=== PATIENT | male | born 1980 | race Caucasian/White ===

== ENCOUNTER 2016-11-03 10:52 | Inpatient (IN) | payer MEDICARE, OTHER ==
--- NOTE | ~2016-11-03 | CN ---
Consultation Report [facility] [address] [place]. [address] NAME: CAROLEE KESSLER : 82 STATUS : ADM Humphrey PAT#: [id number] AGE: 36 ADM/REG DATE : 11/03/16 MR#: [id number] REPORT SERV DATE: 11/04/16 DICTATED BY: JAMES MAZARIEGOS DATE: 11/04/16 REPORT STATUS : Draft TRANSCRIBED BY: MODL DATE: 11/04/16 DATE OF CONSULTATION: 11/04/2016 PRIMARY OCULAR CARE AIDE: Clarence Taylor M.D. CHIEF COMPLAINT: Chest pain, nausea, vomiting, and diarrhea. REASON FOR CONSULTATION: Pulmonary hypertension. SOURCE: The patient and his chart. HISTORY OF PRESENT ILLNESS: Mr. Kessler is a very pleasant 36-year-old white man with history of paroxysmal atrial fibrillation and pacemaker placement, as well as end-stage renal disease for the past six years, on hemodialysis on a Wednesday, , Wednesday schedule. He was in his usual state of health until recently when he had chest pain, nausea, vomiting, and diarrhea, but no GI blood loss. He has not had any abdominal pain. He has had shortness of breath and cough, but no wheezing, no fever or chills. He has occasional palpitations. He does snore at night. He has daytime somnolence. He wears a size 2 XL shirt. He is on home oxygen, but is not on CPAP or BiPAP. He was admitted on 11/03/2016 and was found to be 20 kilos overweight and is undergoing more intensive hemodialysis. REVIEW OF SYSTEMS: All other systems are negative. ALLERGIES: ALMOND OIL. MEDICATIONS AT HOME: Included amiodarone 200 b.i.d., aspirin, atorvastatin, B complex, calcium, cyanocobalamin, Dexilant, doxazosin, folic acid, gabapentin, hydralazine, hydrocodone, hydrocortisone, metoprolol, warfarin, and zolpidem. CARDIAC RISK FACTORS: Include hypertension and cholesterol. Denies diabetes, tobacco, or family history. PAST MEDICAL HISTORY: Significant for end-stage renal disease, on hemodialysis for the past six years on a Wednesday, , Wednesday schedule, reportedly he is 20 kg overweight at this time, atrial fibrillation, sick sinus syndrome status post pacemaker placement one year ago at [facility] by Dr. Luevano, [employer] device, January 22, 2016. He had cardiac catheterization by Dr. Akira Bertrand in May of 2016, which revealed nonobstructive coronary disease, LVEDP of 20. No significant gradient across the aortic valve, sleep apnea, on oxygen at home, but not on CPAP or BiPAP status post tonsillectomy status post herniorrhaphy, and obesity. SOCIAL HISTORY: The patient lives in [place], [place]. He is . He has no children. He is disabled. Consultation Report [facility] [address] [place]. [address] NAME: CAROLEE KESSLER : 82 STATUS : ADM Humphrey PAT#: [id number] AGE: 36 ADM/REG DATE : 11/03/16 MR#: [id number] REPORT SERV DATE: 11/04/16 DICTATED BY: JAMES MAZARIEGOS DATE: 11/04/16 REPORT STATUS : Draft TRANSCRIBED BY: MODCal DATE: 11/04/16 FAMILY HISTORY: Negative for coronary artery disease at young age. PHYSICAL EXAMINATION: GENERAL: He is a well-developed, well-nourished, middle-aged white man, appearing older than his stated age, somnolent in bed, on dialysis, difficult to maintain arousal. VITAL SIGNS: The blood pressure is 187/78, pulse 69, temperature 98 degrees Fahrenheit. HEENT: Conjunctivae injected. Sclerae anicteric. Lips without cyanosis. NECK: Carotids 2+ and symmetrical. No bruits. No JVD. No thyromegaly. Thick neck. LUNGS: Clear anteriorly. No use of accessory muscles. HEART: Regular rate and rhythm with harsh 3/6 systolic murmur along the sternal border varying with respiration. ABDOMEN: Positive bowel sounds. Soft, nontender, obese. EXTREMITIES: Pulses 2+ and symmetrical. No cyanosis, clubbing, or edema. There is an access site in the left forearm. BACK: No CVA tenderness. MUSCULOSKELETAL: Good tone. NEURO: Alert and oriented x3 when he is aroused, frequent somnolence. DIAGNOSTIC DATA: EKG reveals dual-chamber electronic pacemaker. The echocardiogram, mildly depressed LV systolic function, LVEF 45%, moderate LVH, moderately enlarged right ventricle with moderately decreased systolic function, ICD lead noted in the RV, severe pulmonary hypertension with PA pressure of 93 mmHg, systolic and diastolic septal flattening consistent with RV pressure and volume overload, severe TR with probable hepatic vein flow reversal. Posterior tricuspid leaflet may be partially tethered by the ICD lead. Of note, there was only mild mitral regurgitation and mitral valve leaflets were thickened with adequate mobility. LABORATORY EXAMINATION: Includes a sodium 141, potassium 5.9, chloride 104, CO2 not done. BUN 56, creatinine 10.3, glucose 102. White count 7.7, hemoglobin 7.9, and hematocrit 25.3. INR 1.9. CPK 29. MB 2.1. Troponin I of 0.11. Peak troponin was 0.14. TSH was 6.53. IMPRESSION: 1. Suspect sleep apnea, may be severe. 2. Severe pulmonary hypertension, probably secondary to lung disease. 3. Severe tricuspid regurgitation, probably secondary to severe pulmonary hypertension and pacer lead. 4. Atrial fibrillation and sick sinus syndrome status post pacemaker placement. 5. Mildly depressed left ventricular systolic function by most recent echo. 6. No significant coronary artery disease at cardiac catheterization in May 2016. 7. Obesity. 8. Systemic arterial hypertension. 9. End-stage renal disease, on hemodialysis for the past six years on a Wednesday, , Wednesday schedule. 10.Anticoagulated with Coumadin. Consultation Report [address] [address] NAME: CAROLEE KESSLER : 82 STATUS : ADM Humphrey PAT#: [id number] AGE: 36 ADM/REG DATE : 11/03/16 MR#: [id number] REPORT SERV DATE: 11/04/16 DICTATED BY: JAMES MAZARIEGOS DATE: 11/04/16 REPORT STATUS : Draft TRANSCRIBED BY: MARK DATE: 11/04/16 RECOMMENDATIONS: 1. Consult Pulmonary Medicine. 2. Check room air blood gas. 3. Consider evaluation for chronic pulmonary thromboembolism with V/Q scan or CT angiogram. 4. Decrease amiodarone to 200 mg p.o. daily. 5. Consider calcium-channel blockers such as amlodipine or Procardia. 6. Consider CPAP or BiPAP. 7. Consider Revatio or bosentan. 8. Consider referral to [facility]. 9. Could do elective right heart catheterization for invasive measurement of pulmonary pressures as an outpatient when he is off Coumadin. 10.Intensify hemodialysis as you are doing. 11.Discontinue troponin measurement. BN/MODL James Mazariegos M.D. / [id number] CC: Dedrick Shaffer MD
--- NOTE | ~2016-11-03 | CN ---
Consultation Report [facility] [address] [place]. [address] NAME: CAROLEE KESSLER : 82 STATUS : ADM Humphrey PAT#: [id number] AGE: 36 ADM/REG DATE : 11/03/16 MR#: [id number] REPORT SERV DATE: 11/05/16 DICTATED BY: PANFILO US DATE: 11/05/16 REPORT STATUS : Draft TRANSCRIBED BY: MODL DATE: 11/05/16 CONSULTATION DATE OF CONSULTATION: 11/05/2016 CHIEF COMPLAINT: Pulmonary hypertension in a patient with recent abnormal echocardiogram. HISTORY OF PRESENT ILLNESS: Mr. Carolee Kessler is a 36-year-old male with a past medical history significant for end-stage renal disease, dysrhythmia, status post pacemaker placement, chronic Coumadin, and chronic hypoxemia, who presents to [facility] with complaints of chest pain, nausea, and vomiting. It should be noted that, Mr. Kessler has not been hospitalized recently and is usually in fairly good health given his significant comorbidities. Mr. Kessler is followed by Dr. Patrick Garcia at our outpatient clinic. He was recently seen in August for abnormal pulmonary function testing. He is on chronic supplemental oxygen at 2 L. He is not currently on any pulmonary medications. The patient describes himself as a never smoker. The patient does confirm a previous history of obstructive sleep apnea. He states that, he did undergo a formal outpatient polysomnography; however, he did not ever received CPAP therapy. He does confirm snoring at night, frequent nighttime awakenings as well as daytime somnolence. He describes his exercise tolerance as being quite limited, only being able to walk approximately 20 feet before experiencing some degree of shortness of breath. Again, the patient began to experience worsening chest pain as well as nausea and vomiting and eventually presented to [facility]. He has been seen by the Nephrology Service for volume overload and diuresis as he has approximately 20 kg positive. He has been seen by the Cardiology service, who recently performed an echocardiogram, which demonstrated mildly decreased left ventricular systolic fraction with an estimated ejection fraction of 45%. There was moderate left ventricular hypertrophy. The right ventricle was noted to be moderately enlarged. Estimated pulmonary artery systolic pressure was 93 mmHg. Signs consistent with septal flattening, consistent with RV pressure and volume overload. Tricuspid regurg was appreciated as well. The patient was taken to dialysis with aggressive diuresis. The patient did have an arterial blood gas obtained on room air, which demonstrated a pH of 7.29, PaCO2 of 63, PaO2 of 41, and a bicarb of 29.2. For the aforementioned reasons, the patient has been referred to the Pulmonary Service for further assessment. Currently, Mr. Kessler is on 1 L supplemental oxygen with appropriate oxygenation sats. He denies any productive cough. He denies any wheezing in his chest. He has had no recent episodes of hemoptysis. He denies any recurrent upper respiratory infections or pneumonia. He denies any lethargy or somnolence today. The patient currently denies any radiating chest pain. He denies any murmurs, angina, or Consultation Report [address] [address] NAME: CAROLEE KESSLER : 82 STATUS : ADM Humphrey PAT#: [id number] AGE: 36 ADM/REG DATE : 11/03/16 MR#: [id number] REPORT SERV DATE: 11/05/16 DICTATED BY: PANFILO US DATE: 11/05/16 REPORT STATUS : Draft TRANSCRIBED BY: MARK DATE: 11/05/16 palpitations. In regard to constitutional symptoms, he has had some nausea and vomiting today. He currently denies any fever, chills, abdominal pain, or edema. PAST MEDICAL HISTORY: 1. Dysrhythmia, status post pacemaker placement, currently on Coumadin. 2. End-stage renal disease. 3. Hypertension. 4. Dyslipidemia. 5. Chronic hypoxemic respiratory failure. PAST SURGICAL HISTORY: 1. Tonsillectomy. 2. Hernia repair. FAMILY HISTORY: The patient denies family history of lung disease. SOCIAL HISTORY: The patient is . He has no biological children. 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 He denies any new or exotic pets in his home. TOBACCO/ALCOHOL: The patient describes himself as a never smoker. MEDICATIONS: Amiodarone 200 mg, aspirin 81 mg, atorvastatin 40 mg, Dexilant 60 mg, Cardura 2 mg, gabapentin 300 mg, hydralazine 50 mg, hydrocodone 10/325, metoprolol 25 mg, warfarin 5 mg, zolpidem 5 mg. ALLERGIES: THE PATIENT HAS KNOWN ALLERGY TO ALMOND OIL. REVIEW OF SYSTEMS: Complete review of systems was performed with pertinent positives and negatives contained within the body of the HPI. PHYSICAL EXAMINATION: VITAL SIGNS: Blood pressure is 137/71, heart rate is 72, T-max is 97.8, respiratory rate is 12, SpO2 is 94% on 2 L. GENERAL: The patient is a pleasant, well-nourished/well-developed male, who is not currently exhibiting any signs of acute distress. Skin: Skin with appropriate texture and turgor. No rashes, lesions, or ulcers. Nails are clear without cyanosis or clubbing. HEENT: Head: Skull is normocephalic/atraumatic. Facies symmetric. No masses or lesions. Eyes: Sclera anicteric, conjunctiva pink without exudates. Extra ocular movements intact. Pupils are equal, round, reactive to light. Ears: Auricles and tragus without pain to palpation. Hearing is grossly intact. Consultation Report [address] [address] NAME: CAROLEE KESSLER : 82 STATUS : ADM Humphrey PAT#: [id number] AGE: 36 ADM/REG DATE : 11/03/16 MR#: [id number] REPORT SERV DATE: 11/05/16 DICTATED BY: PANFILO US DATE: 11/05/16 REPORT STATUS : Draft TRANSCRIBED BY: MARK DATE: 11/05/16 Nose: Bilateral nasal patency. Sinuses without tenderness upon palpation. Throat: Dentition. Lips, oral mucosa, tongue, palate, and pharynx pink and moist without lesions. Uvula rises equally on phonation. Tongue midline without deviation. The patient is Mallampati class 4. NECK: Neck supple. Trachea midline. No cervical lymphadenopathy appreciated. THORAX/LUNGS: Thorax is symmetric with equal chest rise. Clear breath sounds in the apices, somewhat diminished in the bases. No rales, wheezes, rhonchi CARDIOVASCULAR: Rate controlled. Regular rate and rhythm. No murmurs, rubs, or gallops. Anterior chest without thrills, heaves, or lifts. ABDOMEN: Soft. Non-distended, non-tender. Active bowel sounds in all four quadrants. No hepatosplenomegaly noted. PERIPHERAL VASCULAR: No edema. No varicosities, stasis changes, open sores, ulcerations, or phlebitis. 2+ pulses in radial and dorsalis pedis. MUSCULOSKELETAL: Full AROM and PROM in all joints. No evidence of erythema, deformity, or crepitus. NEUROLOGIC: CN II - XII grossly intact. Good muscle bulk and tone bilaterally. Strength 5/5 throughout. PSYCHIATRIC: The patient demonstrates good judgment and insight. The patient is A&O x 3. ACCESSORY DATA: BUN is 50, creatinine is 8.27. White blood cell count is 5800, hemoglobin and hematocrit are 7.8 and 23.8. PT/INR 23.3 and 2.1 respectively. Chest x-ray reveals patchy interstitial infiltrates bilaterally. V/Q scan is pending, previous pulmonary function testing reveals severe restriction with decreased DLCO. IMPRESSION: 1. Yetke-zl-rpsgkyb hypoxemic, hypercapnic respiratory failure. 2. Volume overload. 3. End-stage renal disease. 4. Dysrhythmia, status post pacemaker placement. 5. Pulmonary hypertension. 6. Obstructive sleep apnea. 7. Medical noncompliance. PLAN: 1. In regard to the patient's [id number] hypoxemic, hypercapnic respiratory failure, the patient has now returned to his baseline oxygenation status. There was some degree of hypercapnia noted on his recent arterial blood gas. That being said, he is not lethargic and is mentating well. We will provide him a BiPAP tonight at hour of sleep and reassess his hypercapnia in the morning. There is likely a component of sleep apnea contributing as well. We will address that moving forward. 2. In regard to the patient's volume overload, he is being aggressively diuresed by the nephrology team. 3. In regard to the patient's dysrhythmia, he is currently being followed by the Cardiology Service. 4. In regard to the patient's pulmonary hypertension, the values from his recent Consultation Report [place] [id number] [facility] [place]. [address] NAME: CAROLEE KESSLER : 82 STATUS : ADM Humphrey PAT#: [id number] AGE: 36 ADM/REG DATE : 11/03/16 MR#: [id number] REPORT SERV DATE: 11/05/16 DICTATED BY: PANFILO US DATE: 11/05/16 REPORT STATUS : Draft TRANSCRIBED BY: MODL DATE: 11/05/16 echocardiogram are out of proportion to his known heart disease. To some degree, this pressure is likely elevated due to his current volume overload. Other considerations at this time would be his chronic hypoxemia, chronic thromboembolic disease as well as intrinsic lung disease. We will follow his recent V/Q scan with close attention. We will move forward with diagnosing his obstructive sleep apnea. Based on those studies, he may eventually require a right heart catheterization to specifically quantify his pulmonary artery pressure once he is closer to baseline. 5. In regard to the patient's obstructive sleep apnea, ultimately he may require an outpatient polysomnography. The aforementioned impression and plan has been discussed with Dr. Feliz, who will follow further recommendations. We thank you for this consult and look forward to participating in the care of Mr. Carolee Kessler. GBS/MODL Panfilo Us PA-C / [id number] CC: Dedrick Shaffer MD
--- NOTE | ~2016-11-03 | HP ---
History And Physical [place] [address] [place]. [address] NAME: CAROLEE KESSLER : 82 STATUS : ADM IN [facility]#: [id number] AGE: 36 ADM/REG DATE : 11/03/16 MR#: [id number] REPORT SERV DATE: 11/04/16 DICTATED BY: DEDRICK SINGH DATE: 11/03/16 REPORT STATUS : Draft TRANSCRIBED BY: MODCal DATE: 11/03/16 DATE OF ADMISSION: 11/03/2016 CHIEF COMPLAINT: Chest pain. HISTORY OF PRESENT ILLNESS: A 36-year-old white male with past medical history of atrial fibrillation status post pacemaker and status post ablation; end-stage renal disease, on hemodialysis Wednesday, , and Wednesday; hypertension; hyperlipidemia; presenting with chest pain x1 day. The patient states he woke up at about 4 o'clock this morning with chest pain with tingling-like sensation, no radiation, severe enough that the patient woke up from sleep. Although the chest pain did not have any radiation, the patient had an episode of nausea, vomiting, and dizziness. The patient denies any palpitations. In addition, the patient denies any history of cough, sputum, or paresthesias. Of note, the patient had a recent left heart catheterization back in 05/2016, which shows nonobstructing coronary artery disease. Cardiology recommended no revascularization. PAST MEDICAL HISTORY: As above. MEDICATIONS: The patient takes, 1. Amiodarone 200 mg p.o. b.i.d. 2. Aspirin half a tab 81 mg daily. 3. Lipitor 40 mg p.o. at bedtime. 4. B complex one tab p.o. daily. 5. Calcium two tablets p.o. three times a day. 6. Vitamin B12 1000 mcg p.o. daily. 7. Dexilant 60 mg p.o. daily. 8. Cardura 2 mg p.o. daily. 9. Folic acid 1 mg p.o. daily. 10.Neurontin 300 mg p.o. b.i.d. 11.Hydralazine 50 mg p.o. t.i.d. 12.[place] 10/325 one tab p.o. three times a day. 13.Cortef 20 mg p.o. daily. 14.Cortef 10 mg p.o. at bedtime. 15.Lopressor 25 mg p.o. b.i.d. 16.Coumadin 5 mg p.o. at bedtime. 17.Ambien 5 mg p.o. at bedtime p.r.n. ALLERGIES: ALMOND OIL. SOCIAL HISTORY: Nonsmoker, nondrinker. FAMILY HISTORY: Significant for diabetes and hypertension. REVIEW OF SYSTEMS: 10-point review of systems conducted, which were negative except for above complaints. History And Physical [address] [address] NAME: CAROLEE KESSLER : 82 STATUS : ADM IN [facility]#: [id number] AGE: 36 ADM/REG DATE : 11/03/16 MR#: [id number] REPORT SERV DATE: 11/04/16 DICTATED BY: DEDRICK SINGH DATE: 11/03/16 REPORT STATUS : Draft TRANSCRIBED BY: MARK DATE: 11/03/16 PHYSICAL EXAMINATION: VITAL SIGNS: Temp of 97.4, pulse 76, respiratory rate 15, BP 160/100, O2 saturation 96% on 2 L. HEAD AND NECK: Normocephalic, atraumatic. CARDIOVASCULAR: S1, S2. Regular rate and rhythm. Chest pain not reproducible on palpation. LUNGS: Good air entry. No wheeze, rales, or rhonchi. ABDOMEN: Soft, nontender, nondistended. Obese. EXTREMITIES: No clubbing, cyanosis, or edema. NEUROLOGIC: Awake, alert, and oriented x3. Cranial nerves II through XII grossly intact. LABORATORY DATA: Sodium 141, potassium 5.9, chloride 102, bicarb 23, BUN 86, creatinine 14.6, glucose 94. Total protein 6.9, albumin 3.0, total bilirubin 0.6, alkaline phosphatase 391, ALT 8, AST 12. PT 18, INR 1.6. WBC 7.7, hemoglobin 7.7, hematocrit 35.6, platelets 109. EKG shows paced rhythm. No gross ST elevation or depression appreciated. ASSESSMENT/PLAN: 1. Chest pain, rule out myocardial infarction versus electrolyte imbalance versus arrhythmia. We will have pacemaker checked/interrogated. In addition, we will also order cardiac enzymes q.6 hours x4 sets. Regarding the patient's electrolyte imbalance, we will treat immediately with Kayexalate, D50 and insulin. The patient does have a high potassium of 5.9. In addition, we will also have renal consult. 2. End-stage renal disease with hyperkalemia. We will have renal consult for hemodialysis on the patient. In addition, the patient states his new medication was hydrocortisone 20 mg in the morning and 10 mg at night. The patient states within the past month or two he has been eating a lot. The patient states he cannot stop eating because when he takes the medication he gets nausea and vomiting unless he puts food down. The patient states although he tries not to eat bananas which are rich in potassium, the patient does eat a lot of food to the point that he gained from 180 to 270 pounds. 3. Atrial fibrillation, status post pacemaker, questionable because of chest pain. We have interrogated the pacemaker whether or not he went into atrial flutter prior to chest pain. 4. Hypertension. Continue the patient's Cardura and hydralazine. 5. Hyperlipidemia. Continue lovastatin and check the lipid panel. 6. GI and DVT prophylaxes. We will continue the Dexilant and heparin. ALTAF/MARK Dedrick Singh MD / [id number] History And Physical [address] [address] NAME: CAROLEE KESSLER : 82 STATUS : ADM IN [facility]#: [id number] AGE: 36 ADM/REG DATE : 11/03/16 MR#: [id number] REPORT SERV DATE: 11/04/16 DICTATED BY: DEDRICK SINGH DATE: 11/03/16 REPORT STATUS : Draft TRANSCRIBED BY: MODL DATE: 11/03/16 CC: Dedrick Singh MD
--- NOTE | ~2016-11-03 | DS ---
Discharge Summary [facility] [address] [place]. [address] NAME: CAROLEE KESSLER : 82 STATUS : DIS IN PAT#: [id number] AGE: 36 ADM/REG DATE : 11/04/16 MR#: [id number] REPORT SERV DATE: 11/09/16 DICTATED BY: DEDRICK SINGH DATE: 11/08/16 REPORT STATUS : Draft TRANSCRIBED BY: MODL DATE: 11/08/16 ADMISSION DATE: 11/04/2016 DISCHARGE DATE: 11/08/2016 PROCEDURES DONE: 1. 2D echo: Mild decreased left ventricular systolic function with an EF of 45%, moderate LVH. Moderately enlarged right ventricle with moderately decreased systolic function. ICD leads noted in the RV. Severe pulmonary hypertension, estimated at 93 mmHg. Systolic and diastolic septal flattening. This is consistent with RV pressure and volume overload. Severe tricuspid regurg with probable hepatic vein flow reversal noted. Posterior tricuspid lead may be partially fitted to the ICD lead. 2. On 11/05/2015, chest x-ray: Cardiomegaly pacemaker. Stable diffuse interstitial prominence, nonspecific. 3. On 11/05/2016, V/Q scan: Normal lung scan. Probably PE is less than 10%. CHIEF COMPLAINT: Chest pain. CONSULTATION: 1. Nurse practitioner, Panfilo Mason PA-C. 2. Cardiology, with Dr. Cheo Cavazos. HISTORY OF HOSPITAL STAY: A 36-year-old white male with past medical history of atrial fibrillation status post pacemaker, status post ablation; end-stage renal disease on hemodialysis on Wednesday, , Wednesday; hypertension; hyperlipidemia, presenting with chest pain x1 day. The patient is a transfer from an outside facility presenting for chest pain. The patient was admitted for further evaluation of chest pain. Of note, the patient was noted to have elevated potassium along with his chest pain. The patient was given medications for hyperkalemia. More importantly, cardiac enzymes were done which were all within normal limits. However, the patient had a 2D echo which showed severe pulmonary hypertension. Renal were consulted for dialysis. The patient unfortunately has been noncompliant with his hemodialysis. During his hospital stay, Renal removed approximately 5 kg of fluid for x3 episodes. Cardiology saw the patient due to the severe pulmonary hypertension. Questionable if the patient would require a right heart catheterization. Pulmonary was also on the case, whether or not the patient can be adequate candidate for endothelial-nerve phosphodiesterase treatments. Unfortunately, the patient is very noncompliant. The patient has been advised that in order for him to get proper treatment for pulmonary hypertension, he needs to be very compliant with his hemodialysis to get fluid overload under control first. The patient understands that once the patient is consistently doing hemodialysis, the patient advised to follow up with Pulmonary and Cardiology for further treatment and evaluation. In addition, the patient was advised that he will need to go for a sleep study as an outpatient. Extensive discussion has been given to the patient regarding compliance with fluid restriction and hemodialysis. DISPOSITION: The patient is feeling fine, no complaint. Discharge Summary [address] [address] NAME: CAROLEE KESSLER : 82 STATUS : DIS IN [facility]#: [id number] AGE: 36 ADM/REG DATE : 11/04/16 MR#: [id number] REPORT SERV DATE: 11/09/16 DICTATED BY: DEDRICK SINGH DATE: 11/08/16 REPORT STATUS : Draft TRANSCRIBED BY: MARK DATE: 11/08/16 ACTIVITY: As tolerated. DIET: Renal. INSTRUCTIONS UPON DISCHARGE: 1. The patient to follow up with Pulmonary within two weeks' time. 2. The patient to follow up with Cardiology in two to three weeks' time. 3. The patient to follow up with Renal for hemodialysis. MEDICATIONS UPON DISCHARGE: 1. Norvasc 5 mg p.o. b.i.d. 2. Aspirin 81 mg p.o. daily. 3. Lipitor 40 mg p.o. q.h.s. 4. Amiodarone 200 mg p.o. b.i.d. 5. Calcium carbonate 500 mg two tablets p.o. three times a day. 6. Vitamin B12 1000 mcg p.o. daily. 7. Cardura 2 mg p.o. daily. 8. Folic acid 1 mg p.o. daily. 9. Neurontin 300 mg p.o. b.i.d. 10.[place] 10/325 mg one tablet p.o. three times a day. 11.Hydrocortisone 20 mg p.o. daily. 12.Hydrocortisone 10 mg p.o. q.h.s. 13.Metoprolol 25 mg p.o. b.i.d. 14.Dexilant 60 mg p.o. daily. 15.Coumadin 5 mg p.o. q.h.s. 16.Apresoline 50 mg p.o. t.i.d. 17.Ambien 5 mg p.o. q.h.s. p.r.n. 18.B complex one tablet p.o. daily. DIAGNOSES UPON DISCHARGE: 1. Chest pain secondary to worsening right ventricular function secondary to fluid overload, pulmonary hypertension. 2. Severe pulmonary hypertension, pressure at 93 mmHg. 3. Fluid overload secondary to medical noncompliance from hemodialysis. 4. End-stage renal disease, on hemodialysis. 5. Atrial fibrillation, on Coumadin and amiodarone. 6. Sick sinus syndrome, status post pacemaker. 7. Hypertension. 8. Hyperlipidemia. 9. Noncompliance. ALTAF/MARK Dedrick Singh MD Discharge Summary [address] [address] NAME: CAROLEE KESSLER : 82 STATUS : DIS IN PAT#: [id number] AGE: 36 ADM/REG DATE : 11/04/16 MR#: [id number] REPORT SERV DATE: 11/09/16 DICTATED BY: DEDRICK SINGH DATE: 11/08/16 REPORT STATUS : Draft TRANSCRIBED BY: MARK DATE: 11/08/16 / [id number] CC: Dedrick Singh MD
[~2016-11-03 10:52] MED LIST: AMB5 PO; APRES50 PO; BREO ELLIPTA INH; C1; C1 PO; C5 PO; CARDU2 PO; CORDARONE PO; COREG25 PO; COUMADIN7.5 MG PO; CYANO1000T PO; DIALYVITE PO; FOSRENOL1000 MG PO; HALF81 PO; IMDUR60 PO; KAPIDEX60 MG PO; LIPITOR40 PO; LOP25 PO; NEPHRO PO; NEUR300 PO; NORCO1 TAB PO; SODBICAR10 PO; TUMSROLL PO; Z100 PO
[2016-11-03] MEDS ORDERED: DIALYVITE PO (11:34)
[2016-11-03] MEDS ORDERED: FOLIC PO (11:35)
[2016-11-03] MEDS ORDERED: TUMSROLL PO (11:35)
[2016-11-03] MEDS ORDERED: CORTEF20 MG PO ×2 (11:36)
[2016-11-03 16:28] LABS: PROTIME (NOT ORD) 22.9 SEC (12.0-14.5)
[2016-11-03 16:41] LABS: CK-MB 2.1 NG/ML; CPK 36 U/L (0-200); FREE T4 1.05 NG/DL (0.76-1.46)
[2016-11-03 16:42] LABS: TROPONIN I 0.12 NG/ML (<0.05)
[2016-11-03 21:46] LABS: CPK 29 U/L (0-200)
[2016-11-03 21:47] LABS: CK-MB 2.1 NG/ML
[2016-11-03 21:50] LABS: TROPONIN I 0.14 NG/ML (<0.05)
[2016-11-04 04:12] LABS: BASOPHILS 0.4 %; BASOPHILS ABSOLUTE 0.03 10/3/uL (0.0-0.16); EOSINOPHILS 3.9 %; HEMATOCRIT 25.3 % (40.0-51.0); HEMOGLOBIN 7.9 g/dL (13.6-17.8); IMMATURE GRANULOCYTES 0.1 %; IMMATURE GRANULOCYTES ABSOLUTE 0.01 10/3/uL (0.0-0.11); LYMPHOCYTES 7.7 %; LYMPHOCYTES ABSOLUTE 0.59 10/3/uL (0.67-4.30); MEAN CORPUS HGB CONC 31.2 g/dL (32.0-36.0); MEAN CORPUSCULAR HEMOGLOB 31.6 pg (26.0-34.0); MEAN PLATELET VOLUME 9.2 fL (9.2-13.0); MONOCYTES 9.9 %; MONOCYTES ABSOLUTE 0.76 10/3/uL (0.21-1.20); NEUTROPHILS ABSOLUTE 5.99 10/3/uL (2.02-8.40); PLATELET COUNT 110 10/3/uL (150-400); RBC DISTRIBUTION WIDTH 15.1 % (12.0-16.0); WHITE BLOOD CELLS 7.7 10/3/uL (4.5-10.5)
[2016-11-04 04:13] LABS: MANUAL DIFF NO %; MEAN CORPUSCULAR VOLUME 101.2 fL (80-100)
[2016-11-04 04:19] LABS: INTERNATIONAL NORMAL RATI 1.9 UNITS (-); PROTIME (NOT ORD) 21.5 SEC (12.0-14.5)
[2016-11-04 04:38] LABS: A/G RATIO 0.7 (0.7-1.9); ALBUMIN 2.8 G/DL (3.5-5.0); CALCIUM, SERUM 8.3 MG/DL (8.5-10.4); CHLORIDE, SERUM 104 MMOL/L (96-112); CO2 (CARBON DIOXIDE) 27 MMOL/L (24-34); CPK 29 U/L (0-200); GLOBULIN 4.1 G/DL (2.5-4.1); GLUCOSE, SERUM 102 MG/DL (60-99); PHOSPHORUS, SERUM 8.6 MG/DL (2.5-4.5); POTASSIUM, SERUM 5.9 MMOL/L (3.5-5.3); SGOT(AST) 6 U/L (5-40); SGPT(ALT) 9 U/L (5-65); SODIUM, SERUM 141 MMOL/L (135-148); TOTAL BILIRUBIN 0.7 MG/DL (0-1.2); TOTAL PROTEIN 6.9 G/DL (6.0-8.5)
[2016-11-04 04:39] LABS: ALKALINE PHOSPHATASE 419 U/L (45-117); BUN (BLOOD UREA NITROGEN) 56 MG/DL (6-23); CK-MB 2.1 NG/ML; GFR AFRICAN AMERICAN 7 ML/MIN (>=60); GFR NON AFRICAN AMERICAN 6 ML/MIN (>=60)
[2016-11-04 04:40] LABS: TROPONIN I 0.11 NG/ML (<0.05)
[2016-11-04 10:28] LABS: CK-MB 1.7 NG/ML; CPK 25 U/L (0-200); TROPONIN I 0.11 NG/ML (<0.05)
[2016-11-05 07:47] LABS: BASOPHILS 0.3 %; BASOPHILS ABSOLUTE 0.02 10/3/uL (0.0-0.16); EOSINOPHILS 4.1 %; EOSINOPHILS ABSOLUTE 0.24 10/3/uL (0.0-0.53); HEMATOCRIT 23.8 % (40.0-51.0); HEMOGLOBIN 7.8 g/dL (13.6-17.8); IMMATURE GRANULOCYTES 0.2 %; IMMATURE GRANULOCYTES ABSOLUTE 0.01 10/3/uL (0.0-0.11); LYMPHOCYTES 13.8 %; MEAN PLATELET VOLUME 9.7 fL (9.2-13.0); MONOCYTES 12.4 %; MONOCYTES ABSOLUTE 0.72 10/3/uL (0.21-1.20); NEUTROPHILS 69.2 %; NEUTROPHILS ABSOLUTE 4.02 10/3/uL (2.02-8.40); PLATELET COUNT 110 10/3/uL (150-400); RBC DISTRIBUTION WIDTH 15.1 % (12.0-16.0); RED CELL COUNT 2.44 10/6/uL (4.7-6.1); WHITE BLOOD CELLS 5.8 10/3/uL (4.5-10.5)
[2016-11-05 07:49] LABS: MEAN CORPUS HGB CONC 32.8 g/dL (32.0-36.0); MEAN CORPUSCULAR VOLUME 97.5 fL (80-100)
[2016-11-05 07:50] LABS: MANUAL DIFF NO %
[2016-11-05 07:59] LABS: INTERNATIONAL NORMAL RATI 2.1 UNITS (-); PROTIME (NOT ORD) 23.3 SEC (12.0-14.5)
[2016-11-05 08:02] LABS: A/G RATIO 0.7 (0.7-1.9); ALBUMIN 2.8 G/DL (3.5-5.0); ALKALINE PHOSPHATASE 410 U/L (45-117); CALCIUM, SERUM 8.4 MG/DL (8.5-10.4); CHLORIDE, SERUM 100 MMOL/L (96-112); CO2 (CARBON DIOXIDE) 27 MMOL/L (24-34); GFR AFRICAN AMERICAN 9 ML/MIN (>=60); GFR NON AFRICAN AMERICAN 8 ML/MIN (>=60); GLOBULIN 4.2 G/DL (2.5-4.1); GLUCOSE, SERUM 93 MG/DL (60-99); PHOSPHORUS, SERUM 8.5 MG/DL (2.5-4.5); POTASSIUM, SERUM 4.9 MMOL/L (3.5-5.3); SGOT(AST) 8 U/L (5-40); SGPT(ALT) 10 U/L (5-65); SODIUM, SERUM 138 MMOL/L (135-148); TOTAL BILIRUBIN 0.5 MG/DL (0-1.2)
[2016-11-05 08:04] LABS: BUN (BLOOD UREA NITROGEN) 50 MG/DL (6-23); CREATININE 8.27 MG/DL (0.70-1.30)
[2016-11-05 08:07] LABS: BE (BASE EXCESS) 1.7 MEQ/L (0 +/- 2.5); CARBOXYHEMOGLOBIN 1.8 % (0-3); HCO3 (ACTUAL BICARBONATE) 29.2 MEQ/L (23-27); HEMOBLOGIN CONTENT 9.4 G/DL (14-18); INSTRUMENT SERIAL # 8083; METHEMOGLOBIN 0.3 % (0-3); OPERATOR ID 13624; PCO2 (CO2 TENSION) 63 MMHG (35-45); PO2 (O2 TENSION) 41 MMHG (79-93); SAMPLE Arterial; pH 7.29 (7.37-7.43)
[2016-11-05 08:08] LABS: ALLENS TEST Pos
[2016-11-06 04:21] LABS: BASOPHILS 0.4 %; BASOPHILS ABSOLUTE 0.02 10/3/uL (0.0-0.16); EOSINOPHILS ABSOLUTE 0.15 10/3/uL (0.0-0.53); HEMATOCRIT 25.1 % (40.0-51.0); HEMOGLOBIN 8.1 g/dL (13.6-17.8); IMMATURE GRANULOCYTES 0.2 %; IMMATURE GRANULOCYTES ABSOLUTE 0.01 10/3/uL (0.0-0.11); LYMPHOCYTES 11.6 %; LYMPHOCYTES ABSOLUTE 0.58 10/3/uL (0.67-4.30); MEAN CORPUS HGB CONC 32.3 g/dL (32.0-36.0); MEAN CORPUSCULAR HEMOGLOB 31.4 pg (26.0-34.0); MEAN CORPUSCULAR VOLUME 97.3 fL (80-100); MEAN PLATELET VOLUME 10.1 fL (9.2-13.0); MONOCYTES ABSOLUTE 0.55 10/3/uL (0.21-1.20); NEUTROPHILS 73.8 %; NEUTROPHILS ABSOLUTE 3.67 10/3/uL (2.02-8.40); PLATELET COUNT 117 10/3/uL (150-400); RBC DISTRIBUTION WIDTH 14.8 % (12.0-16.0); RED CELL COUNT 2.58 10/6/uL (4.7-6.1)
[2016-11-06 04:22] LABS: MANUAL DIFF NO %
[2016-11-06 04:23] LABS: INTERNATIONAL NORMAL RATI 2.1 UNITS (-); PROTIME (NOT ORD) 23.7 SEC (12.0-14.5)
[2016-11-06 04:27] LABS: BE (BASE EXCESS) 1.6 MEQ/L (0 +/- 2.5); CARBOXYHEMOGLOBIN 0.5 % (0-3); HCO3 (ACTUAL BICARBONATE) 26.3 MEQ/L (23-27); INSTRUMENT SERIAL # 8083; PCO2 (CO2 TENSION) 42 MMHG (35-45); PO2 (O2 TENSION) 71 MMHG (79-93); pH 7.41 (7.37-7.43)
[2016-11-06 04:28] LABS: DEVICE NC; HEMOBLOGIN CONTENT 10.2 G/DL (14-18); O2 CONTENT 13.5 VOL% (18-24); OPERATOR ID 30013; SAMPLE Arterial
[2016-11-06 04:41] LABS: ALBUMIN 2.6 G/DL (3.5-5.0); CALCIUM, SERUM 8.4 MG/DL (8.5-10.4); CHLORIDE, SERUM 100 MMOL/L (96-112); CO2 (CARBON DIOXIDE) 26 MMOL/L (24-34); GLUCOSE, SERUM 100 MG/DL (60-99); POTASSIUM, SERUM 4.6 MMOL/L (3.5-5.3); SODIUM, SERUM 138 MMOL/L (135-148)
[2016-11-06 04:48] LABS: BUN (BLOOD UREA NITROGEN) 40 MG/DL (6-23); CREATININE 6.96 MG/DL (0.70-1.30); GFR AFRICAN AMERICAN 11 ML/MIN (>=60); GFR NON AFRICAN AMERICAN 9 ML/MIN (>=60); PHOSPHORUS, SERUM 6.4 MG/DL (2.5-4.5)
[2016-11-07 05:08] LABS: INTERNATIONAL NORMAL RATI 2.4 UNITS (-); PROTIME (NOT ORD) 25.5 SEC (12.0-14.5)
[2016-11-07 05:21] LABS: A/G RATIO 0.7 (0.7-1.9); ALBUMIN 2.9 G/DL (3.5-5.0); CALCIUM, SERUM 8.8 MG/DL (8.5-10.4); CHLORIDE, SERUM 102 MMOL/L (96-112); CO2 (CARBON DIOXIDE) 25 MMOL/L (24-34); GLOBULIN 4.1 G/DL (2.5-4.1); GLUCOSE, SERUM 92 MG/DL (60-99); POTASSIUM, SERUM 4.7 MMOL/L (3.5-5.3); SGOT(AST) 9 U/L (5-40); SGPT(ALT) 9 U/L (5-65); SODIUM, SERUM 140 MMOL/L (135-148); TOTAL BILIRUBIN 0.5 MG/DL (0-1.2)
[2016-11-07 05:22] LABS: ALKALINE PHOSPHATASE 430 U/L (45-117); BUN (BLOOD UREA NITROGEN) 55 MG/DL (6-23); GFR AFRICAN AMERICAN 8 ML/MIN (>=60); GFR NON AFRICAN AMERICAN 7 ML/MIN (>=60); PHOSPHORUS, SERUM 7.5 MG/DL (2.5-4.5)
[2016-11-07 08:07] LABS: BASOPHILS 0.4 %; BASOPHILS ABSOLUTE 0.02 10/3/uL (0.0-0.16); EOSINOPHILS 3.1 %; EOSINOPHILS ABSOLUTE 0.15 10/3/uL (0.0-0.53); LYMPHOCYTES 18.9 %; LYMPHOCYTES ABSOLUTE 0.91 10/3/uL (0.67-4.30); MEAN CORPUSCULAR HEMOGLOB 30.8 pg (26.0-34.0); MEAN CORPUSCULAR VOLUME 96.3 fL (80-100); MEAN PLATELET VOLUME 9.7 fL (9.2-13.0); MONOCYTES 7.9 %; MONOCYTES ABSOLUTE 0.38 10/3/uL (0.21-1.20); NEUTROPHILS 69.7 %; NEUTROPHILS ABSOLUTE 3.35 10/3/uL (2.02-8.40); PLATELET COUNT 98 10/3/uL (150-400); RBC DISTRIBUTION WIDTH 15.1 % (12.0-16.0); WHITE BLOOD CELLS 4.8 10/3/uL (4.5-10.5)
[2016-11-07 08:13] LABS: ALBUMIN 2.9 G/DL (3.5-5.0); BUN (BLOOD UREA NITROGEN) 56 MG/DL (6-23); CALCIUM, SERUM 8.7 MG/DL (8.5-10.4); CHLORIDE, SERUM 102 MMOL/L (96-112); CO2 (CARBON DIOXIDE) 26 MMOL/L (24-34); CREATININE 9.21 MG/DL (0.70-1.30); GFR AFRICAN AMERICAN 8 ML/MIN (>=60); GFR NON AFRICAN AMERICAN 7 ML/MIN (>=60); GLUCOSE, SERUM 85 MG/DL (60-99); HEMATOCRIT 30.9 % (40.0-51.0); HEMOGLOBIN 9.9 g/dL (13.6-17.8); MANUAL DIFF NO %; PHOSPHORUS, SERUM 7.9 MG/DL (2.5-4.5); POTASSIUM, SERUM 4.6 MMOL/L (3.5-5.3); RED CELL COUNT 3.21 10/6/uL (4.7-6.1); SODIUM, SERUM 139 MMOL/L (135-148)
[2016-11-08 05:44] LABS: INTERNATIONAL NORMAL RATI 2.2 UNITS (-); PROTIME (NOT ORD) 24.3 SEC (12.0-14.5)
[2016-11-08] MEDS ORDERED: NORV5 PO (16:27)
== END 2016-11-08 17:14 | disposition home or self-care (01) | DRG 640 ==
LOC: 2SO 10:52
PROVIDERS: Hospitalist; Internal Medicine Nephrology
PROC: 5A1D60Z (ICD-10-PCS; principal; 2016-11-03)
DX: E87.70 Fluid overload, unspecified (principal); J96.21 Acute and chronic respiratory failure with hypoxia; I12.0 Hypertensive chronic kidney disease with stage 5 chronic kidney disease or end stage renal disease; I27.2 Other secondary pulmonary hypertension; N18.6 End stage renal disease; E27.40 Unspecified adrenocortical insufficiency; J96.22 Acute and chronic respiratory failure with hypercapnia; I48.92 Unspecified atrial flutter; E87.5 Hyperkalemia; I48.2 Chronic atrial fibrillation; E78.5 Hyperlipidemia, unspecified; G47.33 Obstructive sleep apnea (adult) (pediatric); I36.1 Nonrheumatic tricuspid (valve) insufficiency; I45.10 Unspecified right bundle-branch block; Z98.890 Other specified postprocedural states; Z95.0 Presence of cardiac pacemaker; Z79.899 Other long term (current) drug therapy; Z79.82 Long term (current) use of aspirin; Z91.19 Patient's noncompliance with other medical treatment and regimen
CPT/HCPCS: 36600; 71020; 78582; 80053; 80069; 82550; 82553; 82805; 82962; 83735; 84100; 84439; 84443; 84484; 85025; 85379; 85610; 93005; 93306; 94660; A9270-GY; A9540; A9567; G0257

== ENCOUNTER 2016-12-17 22:49 | Inpatient (IN) | payer MEDICARE, OTHER ==
--- NOTE | ~2016-12-17 | CN ---
Consultation Report [facility] [address] [facility] [place]. [address] NAME: CAROLEE CAMEJO : 82 STATUS : ADM IN PAT#: [id number] AGE: 36 ADM/REG DATE : 12/17/16 MR#: [id number] REPORT SERV DATE: 12/18/16 DICTATED BY: CORNELIA BOYD DATE: 12/17/16 REPORT STATUS : Draft TRANSCRIBED BY: MODL DATE: 12/17/16 DATE OF CONSULTATION: HISTORY OF PRESENT ILLNESS: Mr. Camejo is seen in the process of a code blue. He was transferred from [facility] to the floor to the Nephrology Service. Right after transfer from the stretcher to the bed, the patient underwent a cardiopulmonary arrest. CPR was in progress when I arrived, appeared to be VFib primarily. The patient is given 1 amp of epinephrine. CPR continued and 1 amp of chloride after finding out his potassium 6.9. He had one attempted defibrillation with 200 joules, it was successful. He came back with a spontaneous return of circulation. Blood pressure 200/110. He was awake and moving. He did require intubation. PAST MEDICAL HISTORY: Significant for history of cardiomyopathy since 2010, history of pacemaker. History of end-stage renal disease, on hemodialysis, apparently he is noncompliant. He does chew tobacco. REVIEW OF SYSTEMS: Otherwise unobtainable. Review of data from [facility] reveals a CT scan was done which revealed no intraabdominal pathology. His blood work from [facility] revealed no evidence of pancreatitis. His creatinine was 16, BUN 94, K is 6.9. H and H were 7.1 and 23. INR was 2.0. PHYSICAL EXAMINATION: HEENT: Head was normocephalic. Bilateral injected conjunctivae. NECK: Supple. Good upstroke. CHEST: Decreased breath sounds. Clear to auscultation and percussion. No wheezing or rhonchi. CARDIAC: S1 and S2. Tachycardic. PMI displaced laterally. ABDOMEN: Obese and nontender. No masses or organomegaly. EXTREMITIES: No clubbing or cyanosis. Pulses palpable. NEUROLOGIC: Exam appears to be grossly intact. He does respond to verbal command. LABORATORY DATA: Chest x-ray taken here shows good placement of endotracheal tube and OG tube, and repeat laboratory showed the following: A pH of 7.122, pCO2 of 52, and PO2 of over 100. On the mechanical ventilator. Glucose is 90. After 1 amp of D50, sat 95, K was 5.5. Bicarb was 17. IMPRESSION: 1. Status post cardiopulmonary respiratory distress. Return of circulation. 2. End-stage kidney disease, on dialysis. 3. Hyperkalemia. 4. Cardiomyopathy with pacemaker. PLAN: Continue mechanical ventilation and attempt to wean as soon as possible. [employer] Consultation Report [address] [address] NAME: CAROLEE CAMEJO : 82 STATUS : ADM IN PAT#: [id number] AGE: 36 ADM/REG DATE : 12/17/16 MR#: [id number] REPORT SERV DATE: 12/18/16 DICTATED BY: CORNELIA BOYD DATE: 12/17/16 REPORT STATUS : Draft TRANSCRIBED BY: MARK DATE: 12/17/16 here will initiate hemodialysis. RP/MARK Cornelia Boyd M.D. / [id number]
--- NOTE | ~2016-12-17 | DS ---
Discharge Summary [facility] [address] [place]. [address] NAME: CAROLEE KESSLER : 82 STATUS : DIS IN PAT#: [id number] AGE: 36 ADM/REG DATE : 12/17/16 MR#: [id number] REPORT SERV DATE: 12/25/16 DICTATED BY: DATE: REPORT STATUS : Draft TRANSCRIBED BY: MODL DATE: 12/24/16 ADMISSION DATE: 12/17/2016 DISCHARGE DATE: 12/24/2016 CONDITION AT DISCHARGE: Stable. MEDICATIONS AT DISCHARGE: As follows: Allopurinol 100 mg daily; ASA 81 mg daily; Lipitor 40 mg p.o. at bedtime; Cordarone 200 mg daily; Sensipar 60 mg p.o. Wednesday, , Wednesday at 9 a.m.; vitamin B12 of 1000 mcg p.o. daily; folic acid 1 mg p.o. daily; warfarin 5 mg p.o. at bedtime; Cortef with a tapered dose; melatonin 3 mg p.o. at bedtime; Lopressor 25 mg p.o. b.i.d.; Nephrocaps one p.o. daily; Apresoline 50 mg p.o. t.i.d.; Tums two tabs p.o. t.i.d.; gabapentin 300 mg twice daily p.r.n.; hydrocodone 10/325 one tab p.o. t.i.d. p.r.n.; and Ambien 5 mg p.o. at bedtime p.r.n. CONSULTATIONS DURING HOSPITAL STAY: Critical Care, Dr. Oakes; Dr. Clarence Taylor for Cardiology. HOSPITAL COURSE: This is a 36-year-old male who dialyzes on a Wednesday, , Wednesday schedule in [place]. He is known to be chronically noncompliant and presented to [facility] on 12/18/2016 and noted to be hyperkalemic with a potassium near 6.8 to 6.9. Efforts were made from [facility] to transition the patient to [facility] for hemodialysis treatment in consideration of his hyperkalemia. Transport was initiated from [facility], and during transport, the patient apparently arrested entering a VFib rhythm on the monitor. He was subsequently provided resuscitation through CPR and shock. He was able to recover spontaneous cardiac rhythm. He was placed in the ICU setting, intubated, and emergently dialyzed that evening by Dr. Erick Doty. He was seen in the consultation by Dr. Tru Taylor, Cardiology, and Dr. Oakes of Critical Care for supportive care regarding his arrest and subsequent intubation. Dr. Oakes did manage his critical care course to his initial admission and care. Dr. Taylor was asked to evaluate him from a cardiac perspective and felt that it was likely his noncompliance and hyperkalemia had led to his VFib arrest. The patient was subsequently transitioned to a telemetry floor room on 12/21/2016 and efforts were made to provide physical therapy evaluation in hopes to define needs for rehabilitation/home health care. The patient has declined on three separate occasions to participate actively in physical therapy evaluation stating that his chest remains tender and sore from resuscitation event that was concluded on December 18 as reflected above. He has maintained his Wednesday, , Wednesday dialysis schedule during this inpatient event and is actively on dialysis this morning during dictation of this discharge summary. There was question of some involvement of addisonian. From an addisonian perspective, he has remained normotensive, and he will be removed from his Florinef and his prednisone on discharge. He has actively been off his Coumadin during this inpatient event and will be resumed on his home dosage today at dismissal at 5 mg. He advises during evaluation this morning that he is monitored at his Dialysis Clinic and instructions will be provided regarding ongoing INR evaluation at his Dialysis Clinic beginning on Wednesday of this week, which will be 12/26/2016 for his next hemodialysis appointment. The patient states specifically that he does not require inpatient rehabilitation and does not wish to have home health evaluation or therapy Services. He will be dismissed today in stable Discharge Summary [id number] [place]. [address] NAME: CAROLEE KESSLER : 82 STATUS : DIS IN PAT#: [id number] AGE: 36 ADM/REG DATE : 12/17/16 MR#: [id number] REPORT SERV DATE: 12/25/16 DICTATED BY: DATE: REPORT STATUS : Draft TRANSCRIBED BY: MODL DATE: 12/24/16 condition with the above undertaken at point of discharge. Next hemodialysis will be on Wednesday per his usual time. He will be provided a tapered dose of steroids since he has been taking steroids here while inpatient at [facility]. Otherwise, his home prescriptions remain as before and no narcotics or sleep aids were prescribed at point of discharge. /MARK Tyron Carvajal NP / [id number] CC: Erick Doty M.D.
--- NOTE | ~2016-12-17 | OP ---
Record Of Operation [facility] [address] [place] [address] NAME: CAROLEE KESSLER : 82 STATUS : ADM IN PAT#: [id number] AGE: 36 ADM/REG DATE : 12/17/16 MR#: [id number] REPORT SERV DATE: 12/18/16 DICTATED BY: CORNELIA OAKES DATE: 12/17/16 REPORT STATUS : Draft TRANSCRIBED BY: MODL DATE: 12/17/16 DATE OF PROCEDURE: 12/17/2016 PROCEDURE: Placement of endotracheal tube. INDICATION: Cardiopulmonary arrest. PROCEDURE IN DETAIL: Pre-oxygenated 100% oxygen. Monitored by blood pressure, EKG, and pulse oximetry. A #8 endotracheal tube passed under direct endoscopic vision to 24 cm. Tube seen to enter between cords, confirmed by end-tidal CO2 monitor. Good breath sounds bilaterally. Satting 100%, post position confirmed by x-ray. RP/MARK Cornelia Oakes M.D. / [id number] CC: Erick Doty M.D.
--- NOTE | ~2016-12-17 | CN ---
Consultation Report [facility] [address] [place]. [address] NAME: CAROLEE KESSLER : 82 STATUS : ADM IN PAT#: [id number] AGE: 36 ADM/REG DATE : 12/17/16 MR#: [id number] REPORT SERV DATE: 12/18/16 DICTATED BY: CLARENCE JARAMILLO DATE: 12/18/16 REPORT STATUS : Draft TRANSCRIBED BY: MODL DATE: 12/18/16 CARDIOVASCULAR CONSULTATION DATE OF CONSULTATION: 12/18/2016 INDICATION: VFib arrest, respiratory failure, end-stage renal disease, and cardiomyopathy. HISTORY OF PRESENT ILLNESS: This is a 36-year-old man with a history of end-stage renal disease, on hemodialysis. The most important factor in his medical history is severe medical noncompliance. He has missed almost all of his appointments at the [facility], well into the double digits. He has a history of a mild nonischemic cardiomyopathy. EF most recently 45% by echo in October of 2016. He underwent cardiac catheterization in May of 2016 showing no significant coronary artery disease. He had a pacemaker placed less than a year ago for sick sinus syndrome and symptomatic asystole. This is an MRI compatible device. He has a history of paroxysmal atrial fibrillation and was on amiodarone until it became so noncompliant with followup that this medication was stopped. He was brought by his family members to [facility] with nausea, vomiting, and abdominal pain. Although the patient cannot provide a history, I suspect he was noncompliant with his hemodialysis. In this setting, his potassium was elevated to 6.8. He was transferred to [facility] for further evaluation. On arrival, he had a VFib arrest from which he was successfully resuscitated. He was intubated and now was seen in the CCU. He is intubated and sedated. PAST MEDICAL HISTORY: 1. End-stage renal disease, on hemodialysis. 2. Paroxysmal atrial fibrillation. 3. History of asystole, status post MRI compatible pacemaker. 4. Normal cardiac catheterization in 05/2016. 5. Mild cardiomyopathy EF 45%. 6. Severe right ventricular enlargement on echo in October. Noncompliant with followup for further evaluation. SOCIAL HISTORY: He does not smoke or drink alcohol. FAMILY HISTORY: Family history is noncontributory. ALLERGIES: NO KNOWN DRUG ALLERGIES. MEDICATIONS: Uncertain. At last office visit in May, the patient was on amiodarone 200 mg twice a day, aspirin 81 mg daily, allopurinol, atorvastatin 40 mg daily, doxazosin 2 mg daily, hydralazine 50 mg three times a day, hydrocortisone 10 mg twice a day, metoprolol 25 mg twice a day, Coumadin, zolpidem, and multivitamin. PHYSICAL EXAMINATION: Consultation Report [address] [address] NAME: CAROLEE KESSLER : 82 STATUS : ADM IN PAT#: [id number] AGE: 36 ADM/REG DATE : 12/17/16 MR#: [id number] REPORT SERV DATE: 12/18/16 DICTATED BY: CLARENCE JARAMILLO DATE: 12/18/16 REPORT STATUS : Draft TRANSCRIBED BY: MARK DATE: 12/18/16 VITAL SIGNS: Blood pressure 140/70, heart rate of 70 and regular, and respiratory rate of 14 GENERAL: Comfortable in no acute distress. HEENT: Anicteric. No xanthelasma. Lips without cyanosis. NECK: No JVD. Carotids 2+ and symmetric. No carotid bruits. LUNGS: CTA bilaterally. No wheezes or rhonchi. No accessory muscle use. COR: RRR. Normally placed PMI. Normal S1 and S2. No murmurs, rubs or gallops. ABD: Soft, nontender, nondistended. Normal bowel sounds. No abdominal bruits. EXT: No clubbing, cyanosis or edema 2+ and symmetric distal pulses. SKIN: Warm. Dry. No venous stasis changes. MS: No kyphosis. NEURO/PSYCH: Oriented x3. No anxiety or depression. EKG: EKG in the setting of hyperkalemia shows atrial fibrillation, peaked T-waves, borderline IVCD. T-wave inversions noted in the lateral precordial leads. Laboratory studies from [facility] are notable for white count of 8.8, hematocrit of 23.9, potassium of 6.9, and creatinine of 16.1. IMPRESSION: Mr. Kessler is a 36-year-old man with end-stage renal disease, mild cardiomyopathy, status post pacemaker for asystole, and severe medical noncompliance. He is admitted I suspect with noncompliance with hemodialysis, severe hyperkalemia, and a VFib arrest. I do not believe this is a primary event related to his coronary artery disease. There clearly is a precipitating factor for his VFib arrest. I suspect he may have some mild elevation in his troponin given the arrest. His ejection fraction may be down a bit. I do not think there is a role for invasive management at this time. There does not appear to be a clear indication for an ICD at this time either since the VFib arrest occurred in the setting of potassium of 6.9. DANNY/NEGARL Clarence Jaramillo M.D. / [id number] CC: Erick Doty M.D.
--- NOTE | ~2016-12-17 | HP ---
History And Physical [id number] [place]. [address] NAME: CAROLEE KESSLER : 82 STATUS : ADM IN [facility]#: [id number] AGE: 36 ADM/REG DATE : 12/17/16 MR#: [id number] REPORT SERV DATE: 12/18/16 DICTATED BY: SUZY CONNOLLY DATE: 12/17/16 REPORT STATUS : Draft TRANSCRIBED BY: MODL DATE: 12/17/16 DATE OF ADMISSION: 12/17/2016 Nephrology History and Physical. REASON FOR ADMISSION: Missed dialysis, hyperkalemia. HISTORY OF PRESENT ILLNESS: The patient is a 36-year-old with a long history of noncompliance who did not go to dialysis for the last several treatments, presented to [facility] Emergency Department and found to have potassium of 6.8 to 6.9. The patient was still awake and alert at that time. Discussed with ER physician in [facility] and requested emergent transfer to [facility]. Patient showed up at [facility] in cardiac arrest at approximately 1045 hours and 45 minutes after initial conversation and transfer requested. CPR was initiated by myself. Dr. Oakes and the code team subsequently arrived. Dr. Oakes took over the care of the patient and was able to regain a pulse with the blood pressure, and the patient was intubated and transferred to the intensive care unit. The patient is currently undergoing emergent hemodialysis. PAST MEDICAL HISTORY: Significant for hypertension, dilated cardiomyopathy, noncompliance, and obstructive sleep apnea. FAMILY HISTORY: Unknown. SOCIAL HISTORY: Uses chewing tobacco. MEDICATIONS: Allopurinol, aspirin, statin, Coumadin, gabapentin . ALLERGIES: NO KNOWN DRUG ALLERGIES. REVIEW OF SYSTEMS: Unable to obtain. PHYSICAL EXAMINATION: GENERAL: He is a somewhat obese, young gentleman, looks older than his stated age. He does not follow commands, is unarousable post code. He does withdraw to painful stimuli. CARDIOVASCULAR: Regular rate and rhythm. RESPIRATORY SYSTEMS: A few rhonchi. Normal effort. Nonlabored. He is on the ventilator with 60% FiO2. No clubbing, cyanosis, or edema. No peripheral edema. PSYCH: mood, affect, and behavior. LABORATORY DATA: Repeat laboratory data is currently pending. IMPRESSION: This is a gentleman with hyperkalemia who missed dialysis, reportedly had some abdominal pain, he presented to other emergency room in [place], [place]. Initial CT scan was negative for acute findings. We will do blood cultures and give the patient vanc and History And Physical [address] [address] NAME: CAROLEE KESSLER : 82 STATUS : ADM IN PAT#: [id number] AGE: 36 ADM/REG DATE : 12/17/16 MR#: [id number] REPORT SERV DATE: 12/18/16 DICTATED BY: SUZY CONNOLLY DATE: 12/17/16 REPORT STATUS : Draft TRANSCRIBED BY: MARK DATE: 12/17/16 Levaquin to cover for any possible source of infection until culture results are known. Reportedly, there is a history of adrenal insufficiency. We will give the patient some hydrocortisone. We will place on sliding scale insulin. The patient is not known to be a diabetic, has blood glucose of 50. We will continue to monitor his blood glucose with Accu- Cheks. We will check a troponin and his cardiac enzymes. We will check for liver function test to see if there is any sign of liver decompensation from his arrest. We will continue to make adjustments and changes as needed. MUSA/MARK Suzy Connolly M.D. / [id number] CC: Suzy Connolly M.D.
[~2016-12-17 22:49] MED LIST changes: +CORTEF20 MG PO; +FOLIC PO; +NORV5 PO
[2016-12-18 00:38] LABS: BASOPHILS 0.1 %; BASOPHILS ABSOLUTE 0.01 10/3/uL (0.0-0.16); EOSINOPHILS 0.4 %; EOSINOPHILS ABSOLUTE 0.03 10/3/uL (0.0-0.53); IMMATURE GRANULOCYTES 0.5 %; IMMATURE GRANULOCYTES ABSOLUTE 0.04 10/3/uL (0.0-0.11); LYMPHOCYTES 8.1 %; LYMPHOCYTES ABSOLUTE 0.61 10/3/uL (0.67-4.30); MEAN CORPUS HGB CONC 32.8 g/dL (32.0-36.0); MEAN CORPUSCULAR HEMOGLOB 32.1 pg (26.0-34.0); MEAN CORPUSCULAR VOLUME 97.8 fL (80-100); MEAN PLATELET VOLUME 8.9 fL (9.2-13.0); NEUTROPHILS 86.9 %; NEUTROPHILS ABSOLUTE 6.56 10/3/uL (2.02-8.40); PLATELET COUNT 115 10/3/uL (150-400); RBC DISTRIBUTION WIDTH 16.8 % (12.0-16.0)
[2016-12-18 00:40] LABS: WHITE BLOOD CELLS 7.6 10/3/uL (4.5-10.5)
[2016-12-18 00:41] LABS: HEMOGLOBIN 5.9 g/dL (13.6-17.8); MANUAL DIFF NO %; RED CELL COUNT 1.84 10/6/uL (4.7-6.1)
[2016-12-18 00:48] LABS: INTERNATIONAL NORMAL RATI 2.8 UNITS (-)
[2016-12-18 00:49] LABS: PROTIME (NOT ORD) 29.4 SEC (12.0-14.5)
[2016-12-18 00:59] LABS: ALBUMIN 2.8 G/DL (3.5-5.0); CHLORIDE, SERUM 111 MMOL/L (96-112); CO2 (CARBON DIOXIDE) 23 MMOL/L (24-34); GLUCOSE, SERUM 70 MG/DL (60-99); SGOT(AST) 15 U/L (5-40); SGPT(ALT) 12 U/L (5-65); SODIUM, SERUM 145 MMOL/L (135-148); TOTAL BILIRUBIN 0.5 MG/DL (0-1.2)
[2016-12-18 01:00] LABS: A/G RATIO 0.9 (0.7-1.9); ALKALINE PHOSPHATASE 517 U/L (45-117); BUN (BLOOD UREA NITROGEN) 78 MG/DL (6-23); CALCIUM, SERUM 7.5 MG/DL (8.5-10.4); GFR AFRICAN AMERICAN 5 ML/MIN (>=60); GFR NON AFRICAN AMERICAN 4 ML/MIN (>=60); GLOBULIN 3.2 G/DL (2.5-4.1); PHOSPHORUS, SERUM 6.4 MG/DL (2.5-4.5)
[2016-12-18 01:01] LABS: TROPONIN I 0.25 NG/ML (<0.05)
[2016-12-18 01:30] LABS: ALLENS TEST Pos; BE (BASE EXCESS) -4.2 MEQ/L (0 +/- 2.5); CARBOXYHEMOGLOBIN 0.1 % (0-3); HCO3 (ACTUAL BICARBONATE) 22.3 MEQ/L (23-27); HEMOBLOGIN CONTENT 6.6 G/DL (14-18); INSTRUMENT SERIAL # 35151; METHEMOGLOBIN 1.4 % (0-3); MODE CMV; O2 CONTENT 8.4 VOL% (18-24); OPERATOR ID 33449; PCO2 (CO2 TENSION) 49 MMHG (35-45); PO2 (O2 TENSION) 68 MMHG (79-93); SAMPLE Arterial; TIDAL VOLUME 500 ML; pH 7.28 (7.37-7.43)
[2016-12-18 04:01] LABS: BASOPHILS 0.3 %; BASOPHILS ABSOLUTE 0.02 10/3/uL (0.0-0.16); EOSINOPHILS 0.1 %; EOSINOPHILS ABSOLUTE 0.01 10/3/uL (0.0-0.53); IMMATURE GRANULOCYTES 0.1 %; IMMATURE GRANULOCYTES ABSOLUTE 0.01 10/3/uL (0.0-0.11); LYMPHOCYTES 6.9 %; LYMPHOCYTES ABSOLUTE 0.54 10/3/uL (0.67-4.30); MEAN CORPUS HGB CONC 32.5 g/dL (32.0-36.0); MEAN CORPUSCULAR HEMOGLOB 31.2 pg (26.0-34.0); MEAN CORPUSCULAR VOLUME 95.9 fL (80-100); MEAN PLATELET VOLUME 9.3 fL (9.2-13.0); MONOCYTES 4.3 %; MONOCYTES ABSOLUTE 0.34 10/3/uL (0.21-1.20); NEUTROPHILS 88.3 %; PLATELET COUNT 107 10/3/uL (150-400); RBC DISTRIBUTION WIDTH 16.8 % (12.0-16.0); WHITE BLOOD CELLS 7.8 10/3/uL (4.5-10.5)
[2016-12-18 04:02] LABS: HEMATOCRIT 21.2 % (40.0-51.0); HEMOGLOBIN 6.9 g/dL (13.6-17.8); MANUAL DIFF NO %; RED CELL COUNT 2.21 10/6/uL (4.7-6.1)
[2016-12-18 04:11] LABS: INTERNATIONAL NORMAL RATI 2.6 UNITS (-); PARTIAL THROMBO TIME 56.4 SEC (22.5-37.2); PROTIME (NOT ORD) 27.3 SEC (12.0-14.5)
[2016-12-18 04:13] LABS: A/G RATIO 0.8 (0.7-1.9); CHLORIDE, SERUM 108 MMOL/L (96-112); CO2 (CARBON DIOXIDE) 24 MMOL/L (24-34); GLOBULIN 3.6 G/DL (2.5-4.1); POTASSIUM, SERUM 4.1 MMOL/L (3.5-5.3); SGOT(AST) 17 U/L (5-40); SGPT(ALT) 16 U/L (5-65); SODIUM, SERUM 144 MMOL/L (135-148); TOTAL BILIRUBIN 0.6 MG/DL (0-1.2); TOTAL PROTEIN 6.6 G/DL (6.0-8.5)
[2016-12-18 04:17] LABS: ALLENS TEST Pos; BE (BASE EXCESS) -3.5 MEQ/L (0 +/- 2.5); CARBOXYHEMOGLOBIN 0.3 % (0-3); HEMOBLOGIN CONTENT 7.5 G/DL (14-18); INSTRUMENT SERIAL # 35151; METHEMOGLOBIN 1.5 % (0-3); MODE CMV; O2 CONTENT 8.8 VOL% (18-24); OPERATOR ID 17589; PCO2 (CO2 TENSION) 50 MMHG (35-45); PO2 (O2 TENSION) 54 MMHG (79-93); SAMPLE Arterial; TIDAL VOLUME 500 ML; pH 7.29 (7.37-7.43)
[2016-12-18 04:26] LABS: ALKALINE PHOSPHATASE 591 U/L (45-117); BUN (BLOOD UREA NITROGEN) 47 MG/DL (6-23); CREATININE 8.61 MG/DL (0.70-1.30); GFR AFRICAN AMERICAN 8 ML/MIN (>=60); GFR NON AFRICAN AMERICAN 7 ML/MIN (>=60); GLUCOSE, SERUM 102 MG/DL (60-99)
[2016-12-18 12:56] LABS: HEMOGLOBIN 7.6 g/dL (13.6-17.8)
[2016-12-18 12:58] LABS: HEMATOCRIT 23.4 % (40.0-51.0)
[2016-12-18] MEDS ORDERED: LIPITOR40 PO (14:29)
[2016-12-18] MEDS ORDERED: HALF81 PO (14:29)
[2016-12-18] MEDS ORDERED: CORDARONE PO (14:29)
[2016-12-18] MEDS ORDERED: CYANO1000T PO (14:30)
[2016-12-18] MEDS ORDERED: DIALYVITE PO (14:30)
[2016-12-18] MEDS ORDERED: TUMSROLL PO (14:30)
[2016-12-18] MEDS ORDERED: CARDU2 PO (14:31)
[2016-12-18] MEDS ORDERED: KAPIDEX60 MG PO (14:31)
[2016-12-18] MEDS ORDERED: FOLIC PO (14:32)
[2016-12-18] MEDS ORDERED: NEUR300 PO (14:32)
[2016-12-18] MEDS ORDERED: APRES50 PO (14:32)
[2016-12-18] MEDS ORDERED: NORCO1 TAB PO (14:32)
[2016-12-18] MEDS ORDERED: CORTEF5 PO (14:33)
[2016-12-18] MEDS ORDERED: CORTEF20 MG PO (14:33)
[2016-12-18] MEDS ORDERED: AMB5 PO (14:34)
[2016-12-18] MEDS ORDERED: C5 PO (14:34)
[2016-12-18] MEDS ORDERED: LOP25 PO (14:34)
[2016-12-18] MEDS ORDERED: SENSIPAR60 MG PO (14:35)
[2016-12-18] MEDS ORDERED: DIALYSIS IV (14:35)
[2016-12-18] MEDS ORDERED: Z100 PO (14:36)
[2016-12-18 15:00] LABS: ALLENS TEST Pos; BE (BASE EXCESS) -5.3 MEQ/L (0 +/- 2.5); CARBOXYHEMOGLOBIN 0.3 % (0-3); HCO3 (ACTUAL BICARBONATE) 21.2 MEQ/L (23-27); HEMOBLOGIN CONTENT 9.5 G/DL (14-18); INSTRUMENT SERIAL # 35151; METHEMOGLOBIN 1.1 % (0-3); MODE CMV; O2 CONTENT 12.1 VOL% (18-24); OPERATOR ID 32199; PCO2 (CO2 TENSION) 46 MMHG (35-45); PO2 (O2 TENSION) 70 MMHG (79-93); SAMPLE Arterial; TIDAL VOLUME 500 ML; pH 7.28 (7.37-7.43)
[2016-12-19 03:30] LABS: BASOPHILS 0.2 %; BASOPHILS ABSOLUTE 0.01 10/3/uL (0.0-0.16); EOSINOPHILS 0 %; HEMOGLOBIN 8.2 g/dL (13.6-17.8); IMMATURE GRANULOCYTES 0.2 %; IMMATURE GRANULOCYTES ABSOLUTE 0.01 10/3/uL (0.0-0.11); LYMPHOCYTES 4.8 %; LYMPHOCYTES ABSOLUTE 0.23 10/3/uL (0.67-4.30); MEAN CORPUS HGB CONC 32.8 g/dL (32.0-36.0); MEAN CORPUSCULAR HEMOGLOB 30.7 pg (26.0-34.0); MEAN CORPUSCULAR VOLUME 93.6 fL (80-100); MEAN PLATELET VOLUME 9.7 fL (9.2-13.0); MONOCYTES 12.8 %; MONOCYTES ABSOLUTE 0.61 10/3/uL (0.21-1.20); PLATELET COUNT 105 10/3/uL (150-400); RBC DISTRIBUTION WIDTH 17.6 % (12.0-16.0); WHITE BLOOD CELLS 4.8 10/3/uL (4.5-10.5)
[2016-12-19 03:32] LABS: MANUAL DIFF NO %; RED CELL COUNT 2.67 10/6/uL (4.7-6.1)
[2016-12-19 03:50] LABS: BUN (BLOOD UREA NITROGEN) 33 MG/DL (6-23); CALCIUM, SERUM 8.3 MG/DL (8.5-10.4); CHLORIDE, SERUM 106 MMOL/L (96-112); CO2 (CARBON DIOXIDE) 27 MMOL/L (24-34); GLUCOSE, SERUM 112 MG/DL (60-99); POTASSIUM, SERUM 4.8 MMOL/L (3.5-5.3); PREALBUMIN 17.6 MG/DL (17.0-43.0); SODIUM, SERUM 142 MMOL/L (135-148)
[2016-12-19 03:51] LABS: CREATININE 7.12 MG/DL (0.70-1.30); GFR AFRICAN AMERICAN 10 ML/MIN (>=60); GFR NON AFRICAN AMERICAN 9 ML/MIN (>=60); PHOSPHORUS, SERUM 7.5 MG/DL (2.5-4.5)
[2016-12-19 04:07] LABS: BE (BASE EXCESS) -1.7 MEQ/L (0 +/- 2.5); HCO3 (ACTUAL BICARBONATE) 23.4 MEQ/L (23-27); INSTRUMENT SERIAL # 35151; PCO2 (CO2 TENSION) 41 MMHG (35-45); PO2 (O2 TENSION) 75 MMHG (79-93); pH 7.37 (7.37-7.43)
[2016-12-19 04:08] LABS: ALLENS TEST Pos; CARBOXYHEMOGLOBIN 0.3 % (0-3); HEMOBLOGIN CONTENT 8.4 G/DL (14-18); METHEMOGLOBIN 0.8 % (0-3); O2 CONTENT 11.1 VOL% (18-24); OPERATOR ID 19993; SAMPLE Arterial; TIDAL VOLUME 500 ML
[2016-12-19 10:42] LABS: ALLENS TEST Pos; BE (BASE EXCESS) -1.4 MEQ/L (0 +/- 2.5); CARBOXYHEMOGLOBIN 0.3 % (0-3); DEVICE NC; HCO3 (ACTUAL BICARBONATE) 24.3 MEQ/L (23-27); HEMOBLOGIN CONTENT 8.8 G/DL (14-18); INSTRUMENT SERIAL # 35151; METHEMOGLOBIN 0.7 % (0-3); O2 CONTENT 11.4 VOL% (18-24); PCO2 (CO2 TENSION) 46 MMHG (35-45); PO2 (O2 TENSION) 70 MMHG (79-93); SAMPLE Arterial; pH 7.35 (7.37-7.43)
[2016-12-20 03:49] LABS: BASOPHILS 0.2 %; BASOPHILS ABSOLUTE 0.01 10/3/uL (0.0-0.16); EOSINOPHILS 0 %; HEMOGLOBIN 7.6 g/dL (13.6-17.8); IMMATURE GRANULOCYTES 0.2 %; IMMATURE GRANULOCYTES ABSOLUTE 0.01 10/3/uL (0.0-0.11); LYMPHOCYTES 5.8 %; LYMPHOCYTES ABSOLUTE 0.33 10/3/uL (0.67-4.30); MEAN CORPUS HGB CONC 31.7 g/dL (32.0-36.0); MEAN CORPUSCULAR HEMOGLOB 30.3 pg (26.0-34.0); MEAN CORPUSCULAR VOLUME 95.6 fL (80-100); MEAN PLATELET VOLUME 9.9 fL (9.2-13.0); MONOCYTES 5.5 %; MONOCYTES ABSOLUTE 0.31 10/3/uL (0.21-1.20); NEUTROPHILS 88.3 %; NEUTROPHILS ABSOLUTE 4.99 10/3/uL (2.02-8.40); PLATELET COUNT 107 10/3/uL (150-400); RBC DISTRIBUTION WIDTH 16.8 % (12.0-16.0); RED CELL COUNT 2.51 10/6/uL (4.7-6.1); WHITE BLOOD CELLS 5.7 10/3/uL (4.5-10.5)
[2016-12-20 03:52] LABS: MANUAL DIFF NO %
[2016-12-20 04:00] LABS: ALBUMIN 2.7 G/DL (3.5-5.0); BUN (BLOOD UREA NITROGEN) 52 MG/DL (6-23); CALCIUM, SERUM 7.9 MG/DL (8.5-10.4); CHLORIDE, SERUM 107 MMOL/L (96-112); CO2 (CARBON DIOXIDE) 25 MMOL/L (24-34); CREATININE 8.97 MG/DL (0.70-1.30); GFR AFRICAN AMERICAN 8 ML/MIN (>=60); GFR NON AFRICAN AMERICAN 7 ML/MIN (>=60); GLUCOSE, SERUM 98 MG/DL (60-99); PHOSPHORUS, SERUM 8.2 MG/DL (2.5-4.5); POTASSIUM, SERUM 5.4 MMOL/L (3.5-5.3); SODIUM, SERUM 141 MMOL/L (135-148)
[2016-12-21 17:44] LABS: BASOPHILS 0.2 %; BASOPHILS ABSOLUTE 0.01 10/3/uL (0.0-0.16); EOSINOPHILS 0 %; HEMATOCRIT 24.9 % (40.0-51.0); HEMOGLOBIN 8.1 g/dL (13.6-17.8); IMMATURE GRANULOCYTES 0.3 %; IMMATURE GRANULOCYTES ABSOLUTE 0.02 10/3/uL (0.0-0.11); LYMPHOCYTES ABSOLUTE 0.25 10/3/uL (0.67-4.30); MEAN CORPUS HGB CONC 32.5 g/dL (32.0-36.0); MEAN CORPUSCULAR HEMOGLOB 30.8 pg (26.0-34.0); MEAN CORPUSCULAR VOLUME 94.7 fL (80-100); MEAN PLATELET VOLUME 9.7 fL (9.2-13.0); MONOCYTES 6.5 %; MONOCYTES ABSOLUTE 0.41 10/3/uL (0.21-1.20); PLATELET COUNT 97 10/3/uL (150-400); RBC DISTRIBUTION WIDTH 16.5 % (12.0-16.0); RED CELL COUNT 2.63 10/6/uL (4.7-6.1); WHITE BLOOD CELLS 6.3 10/3/uL (4.5-10.5)
[2016-12-21 17:49] LABS: MANUAL DIFF NO %
[2016-12-21 17:59] LABS: CALCIUM, SERUM 8.4 MG/DL (8.5-10.4); CHLORIDE, SERUM 105 MMOL/L (96-112); GFR AFRICAN AMERICAN 6 ML/MIN (>=60); GFR NON AFRICAN AMERICAN 5 ML/MIN (>=60); GLUCOSE, SERUM 98 MG/DL (60-99); PHOSPHORUS, SERUM 8.5 MG/DL (2.5-4.5); POTASSIUM, SERUM 5.8 MMOL/L (3.5-5.3); SODIUM, SERUM 136 MMOL/L (135-148)
[2016-12-21 18:01] LABS: BUN (BLOOD UREA NITROGEN) 72 MG/DL (6-23); CO2 (CARBON DIOXIDE) 20 MMOL/L (24-34)
[2016-12-22 06:41] LABS: ALBUMIN 2.9 G/DL (3.5-5.0); CALCIUM, SERUM 8.6 MG/DL (8.5-10.4); CHLORIDE, SERUM 104 MMOL/L (96-112); GLUCOSE, SERUM 90 MG/DL (60-99); POTASSIUM, SERUM 4.9 MMOL/L (3.5-5.3); SODIUM, SERUM 142 MMOL/L (135-148)
[2016-12-22 06:42] LABS: BASOPHILS 0.3 %; BASOPHILS ABSOLUTE 0.02 10/3/uL (0.0-0.16); EOSINOPHILS 0.3 %; EOSINOPHILS ABSOLUTE 0.02 10/3/uL (0.0-0.53); HEMATOCRIT 26.7 % (40.0-51.0); HEMOGLOBIN 8.5 g/dL (13.6-17.8); IMMATURE GRANULOCYTES 0.2 %; IMMATURE GRANULOCYTES ABSOLUTE 0.01 10/3/uL (0.0-0.11); LYMPHOCYTES 6.5 %; MEAN CORPUS HGB CONC 31.8 g/dL (32.0-36.0); MEAN CORPUSCULAR HEMOGLOB 30.6 pg (26.0-34.0); MEAN PLATELET VOLUME 10.5 fL (9.2-13.0); MONOCYTES 8.8 %; MONOCYTES ABSOLUTE 0.54 10/3/uL (0.21-1.20); NEUTROPHILS 83.9 %; NEUTROPHILS ABSOLUTE 5.13 10/3/uL (2.02-8.40); PLATELET COUNT 111 10/3/uL (150-400); RBC DISTRIBUTION WIDTH 16.4 % (12.0-16.0); RED CELL COUNT 2.78 10/6/uL (4.7-6.1); WHITE BLOOD CELLS 6.1 10/3/uL (4.5-10.5)
[2016-12-22 06:45] LABS: BUN (BLOOD UREA NITROGEN) 42 MG/DL (6-23); CO2 (CARBON DIOXIDE) 26 MMOL/L (24-34); CREATININE 7.85 MG/DL (0.70-1.30); GFR AFRICAN AMERICAN 9 ML/MIN (>=60); GFR NON AFRICAN AMERICAN 8 ML/MIN (>=60); PHOSPHORUS, SERUM 7.4 MG/DL (2.5-4.5)
[2016-12-22 06:49] LABS: MANUAL DIFF NO %
[2016-12-23 05:26] LABS: ALBUMIN 2.7 G/DL (3.5-5.0); CALCIUM, SERUM 8.2 MG/DL (8.5-10.4); CHLORIDE, SERUM 102 MMOL/L (96-112); CO2 (CARBON DIOXIDE) 27 MMOL/L (24-34); GLUCOSE, SERUM 83 MG/DL (60-99); POTASSIUM, SERUM 4.1 MMOL/L (3.5-5.3); SODIUM, SERUM 140 MMOL/L (135-148)
[2016-12-23 05:38] LABS: BASOPHILS 0.4 %; BASOPHILS ABSOLUTE 0.02 10/3/uL (0.0-0.16); EOSINOPHILS 0.7 %; EOSINOPHILS ABSOLUTE 0.04 10/3/uL (0.0-0.53); HEMATOCRIT 27.1 % (40.0-51.0); HEMOGLOBIN 8.7 g/dL (13.6-17.8); IMMATURE GRANULOCYTES 0.2 %; IMMATURE GRANULOCYTES ABSOLUTE 0.01 10/3/uL (0.0-0.11); LYMPHOCYTES 11.4 %; LYMPHOCYTES ABSOLUTE 0.62 10/3/uL (0.67-4.30); MEAN CORPUS HGB CONC 32.1 g/dL (32.0-36.0); MEAN CORPUSCULAR HEMOGLOB 30.6 pg (26.0-34.0); MEAN CORPUSCULAR VOLUME 95.4 fL (80-100); MEAN PLATELET VOLUME 10.1 fL (9.2-13.0); MONOCYTES 12.3 %; MONOCYTES ABSOLUTE 0.67 10/3/uL (0.21-1.20); NEUTROPHILS ABSOLUTE 4.08 10/3/uL (2.02-8.40); PLATELET COUNT 99 10/3/uL (150-400); RBC DISTRIBUTION WIDTH 15.9 % (12.0-16.0); RED CELL COUNT 2.84 10/6/uL (4.7-6.1); WHITE BLOOD CELLS 5.4 10/3/uL (4.5-10.5)
[2016-12-23 05:39] LABS: BUN (BLOOD UREA NITROGEN) 30 MG/DL (6-23); CREATININE 6.25 MG/DL (0.70-1.30); GFR AFRICAN AMERICAN 12 ML/MIN (>=60); GFR NON AFRICAN AMERICAN 11 ML/MIN (>=60); PHOSPHORUS, SERUM 6.2 MG/DL (2.5-4.5)
[2016-12-23 05:40] LABS: MANUAL DIFF NO %
[2016-12-24 07:49] LABS: BASOPHILS 0.3 %; BASOPHILS ABSOLUTE 0.02 10/3/uL (0.0-0.16); EOSINOPHILS 1.7 %; EOSINOPHILS ABSOLUTE 0.11 10/3/uL (0.0-0.53); HEMATOCRIT 25.6 % (40.0-51.0); HEMOGLOBIN 8.6 g/dL (13.6-17.8); LYMPHOCYTES 10.8 %; LYMPHOCYTES ABSOLUTE 0.69 10/3/uL (0.67-4.30); MEAN CORPUS HGB CONC 33.6 g/dL (32.0-36.0); MEAN CORPUSCULAR HEMOGLOB 30.8 pg (26.0-34.0); MEAN PLATELET VOLUME 9.6 fL (9.2-13.0); MONOCYTES 9.4 %; NEUTROPHILS 77.8 %; NEUTROPHILS ABSOLUTE 4.99 10/3/uL (2.02-8.40); PLATELET COUNT 109 10/3/uL (150-400); RBC DISTRIBUTION WIDTH 15.9 % (12.0-16.0); RED CELL COUNT 2.79 10/6/uL (4.7-6.1); WHITE BLOOD CELLS 6.4 10/3/uL (4.5-10.5)
[2016-12-24 07:51] LABS: MANUAL DIFF NO %; MEAN CORPUSCULAR VOLUME 91.8 fL (80-100)
[2016-12-24 08:02] LABS: ALBUMIN 2.6 G/DL (3.5-5.0); BUN (BLOOD UREA NITROGEN) 51 MG/DL (6-23); CALCIUM, SERUM 8.7 MG/DL (8.5-10.4); CHLORIDE, SERUM 101 MMOL/L (96-112); CO2 (CARBON DIOXIDE) 24 MMOL/L (24-34); CREATININE 8.98 MG/DL (0.70-1.30); GFR AFRICAN AMERICAN 8 ML/MIN (>=60); GFR NON AFRICAN AMERICAN 7 ML/MIN (>=60); GLUCOSE, SERUM 95 MG/DL (60-99); PHOSPHORUS, SERUM 7.6 MG/DL (2.5-4.5); SODIUM, SERUM 140 MMOL/L (135-148)
[2016-12-24] MEDS ORDERED: CORTEF5 (13:27)
[2016-12-24] MEDS ORDERED: MELA3 PO (13:28)
[2016-12-24] MEDS ORDERED: NEPHRO PO (13:29)
[2016-12-24] MEDS ORDERED: APRES50 PO (13:30)
[2016-12-24] MEDS ORDERED: NEUR300 PO (13:31)
== END 2016-12-24 17:26 | disposition home or self-care (01) | DRG 208 ==
LOC: 2SO 22:49 → CCU 23:09 → 2SO 12-20 13:41
PROVIDERS: Internal Medicine Critical Care Medicine; Internal Medicine Nephrology; Registered Nurse
PROC: 5A1945Z Respiratory Ventilation, 24-96 Consecutive Hours (ICD-10-PCS; principal; 2016-12-17)
PROC: 0BH17EZ Insertion of Endotracheal Airway into Trachea, Via Natural or Artificial Opening (ICD-10-PCS; 2016-12-17)
PROC: 5A2204Z Restoration of Cardiac Rhythm, Single (ICD-10-PCS; 2016-12-17)
PROC: 5A1D60Z (ICD-10-PCS; 2016-12-18)
PROC: 30233N1 Transfusion of Nonautologous Red Blood Cells into Peripheral Vein, Percutaneous Approach (ICD-10-PCS; 2016-12-18)
DX: J96.01 Acute respiratory failure with hypoxia (principal); I49.01 Ventricular fibrillation; N18.6 End stage renal disease; I46.9 Cardiac arrest, cause unspecified; I42.0 Dilated cardiomyopathy; I50.32 Chronic diastolic (congestive) heart failure; E27.40 Unspecified adrenocortical insufficiency; I27.2 Other secondary pulmonary hypertension; E87.5 Hyperkalemia; I12.9 Hypertensive chronic kidney disease with stage 1 through stage 4 chronic kidney disease, or unspecified chronic kidney disease; G47.33 Obstructive sleep apnea (adult) (pediatric); F17.210 Nicotine dependence, cigarettes, uncomplicated; R19.7 Diarrhea, unspecified; I73.9 Peripheral vascular disease, unspecified; M10.9 Gout, unspecified; I48.0 Paroxysmal atrial fibrillation; Z99.2 Dependence on renal dialysis; Z95.0 Presence of cardiac pacemaker; Z91.14 Patient's other noncompliance with medication regimen; Z91.15 Patient's noncompliance with renal dialysis; Z86.73 Personal history of transient ischemic attack (TIA), and cerebral infarction without residual deficits
CPT/HCPCS: 31720; 36415; 36600; 71010; 74000; 80048; 80053; 80069; 82330; 82803; 82805; 82947; 82962; 83735; 84100; 84132; 84134; 84295; 84484; 85014; 85018; 85025; 85610; 85730; 86850; 86900; 86901; 86920; 87040; 87070; 87205; 87641; 92950; 93005; 93306; 94002; 94003; 94640; 94660; 94770; A9270-GY; C9113; G0257; J1720; J1956; J2405; J3010; J3370; P9016; P9047

== ENCOUNTER 2016-12-31 23:20 | Inpatient (IN) | payer MEDICARE, OTHER ==
--- NOTE | ~2016-12-31 | HP ---
History And Physical [id number] [place]. [address] NAME: CAROLEE KESSLER : 82 STATUS : ADM IN [facility]#: [id number] AGE: 36 ADM/REG DATE : 01/01/17 MR#: [id number] REPORT SERV DATE: 01/01/17 DICTATED BY: DATE: REPORT STATUS : Draft TRANSCRIBED BY: MODL DATE: 01/01/17 DATE OF ADMISSION: 01/01/2017 CHIEF COMPLAINT: Shortness of breath, hypotension. HISTORY OF PRESENT ILLNESS: Mr. Kessler is an unfortunate 36-year-old white male with end- stage renal disease, hypertension, moderate to severe pulmonary hypertension, dilated cardiomyopathy. He was just hospitalized two weeks ago after suffering a VFib arrest after being noncompliant with dialysis and having a potassium of 6.9. During his arrest, he did receive CPR and had to be intubated. He states since being home, he has had continued chest discomfort. He states that also he has had some difficulty with swallowing as well and has only been doing liquids in minimal amounts. Reports Wednesday, he went to dialysis and afterwards he felt dizzy, nauseated, had low blood pressure, after drinking some fluids this improved. Yesterday, he went to dialysis, he states they did not take off that much fluids he was well below his dry weight. However, he did develop hypotension once more, became nauseated, very dizzy, blood pressure in 70s that would not respond to fluids that he took n.p.o. He also developed shortness of breath, therefore called EMS and was brought here to the emergency department. In the emergency department, his blood pressures here were in the 90s, and his chest x-ray shows some pulmonary edema, actually improved from last chest x-ray here. Troponin elevated at 0.28, but when I look in the records, it looks as though that was his last troponin here, he has chronic elevation of his troponin. He did have an echocardiogram last admission. He had a trace pericardial effusion. Given all these symptoms, he is being admitted for further evaluation. PAST MEDICAL HISTORY: End-stage renal disease, hypertension, moderate to severe pulmonary hypertension, dilated cardiomyopathy with EF of 50, obstructive sleep apnea, hyperlipidemia noncompliance, atrial fibrillation, status post ablation, sick sinus syndrome, status post pacemaker. FAMILY MEDICAL HISTORY: Diabetes, hypertension, no end-stage renal disease. SOCIAL HISTORY: He lives alone. Uses chewing tobacco. No alcohol or illicit drug use. ALLERGIES: NONE. MEDICATIONS: At home, allopurinol, amiodarone, aspirin, atorvastatin, calcium carbonate, cinacalcet, B12, Cardura, folic acid, gabapentin, hydralazine, hydrocodone, it looks as though he was on hydrocortisone until 12/29/2016, melatonin, metoprolol, Nephro-Lety, Coumadin, and Ambien. REVIEW OF SYSTEMS: 12-point review of systems obtained, negative with the exception that in HPI. PHYSICAL EXAMINATION: VITAL SIGNS: Temp 97.7, blood pressure 130/67, pulse 72, respiratory rate 16, O2 saturation is 95%. History And Physical [address] [address] NAME: CAROLEE KESSLER : [birth year] STATUS : ADM IN [facility]#: [id number] AGE: 36 ADM/REG DATE : 01/01/17 MR#: [id number] REPORT SERV DATE: 01/01/17 DICTATED BY: DATE: REPORT STATUS : Draft TRANSCRIBED BY: MODL DATE: 01/01/17 GENERAL: This is a chronically ill-appearing white male. He is awake, alert, and oriented, answers questions appropriately. HEENT: Normocephalic, atraumatic. Conjunctivae clear. Sclerae anicteric. Pupils are equal and round. Oral mucosa is dry. NECK: Supple. No lymphadenopathy. He has a choudhary, I really cannot assess neck veins well. LUNGS: Respirations are even and unlabored. He has fine crackles noted throughout. HEART: His heart rate is regular. He does have a 3/6 systolic ejection murmur. No rub or gallop. ABDOMEN: Soft, nontender. Bowel sounds active. No masses or hepatosplenomegaly. No bruits. No CVA tenderness. BACK: Within normal limits. EXTREMITIES: No edema, cyanosis, or clubbing. SKIN: Warm, dry, and intact. No unusual rash or skin lesions. NEURO: No focal deficits. Mood and affect, pleasant and appropriate. PERTINENT LABS AND X-RAYS: WBC 7.5, H and H 7 and 24, platelets 143,000. INR was 5. Chest x-ray with pulmonary edema. Troponin 0.28, lactate 0.6. He had a CT of the abdomen and pelvis with no acute intraabdominal abnormality. IMPRESSION: 1. Shortness of breath. 2. Hypotension. 3. Continued chest pain/soreness. 4. Elevated troponin. 5. History of nonobstructive coronary artery disease with last cath being in 05/2016. 6. Dilated cardiomyopathy. 7. Emtzoktn-nv-rlltjz pulmonary hypertension. 8. End-stage renal disease. 9. Dysphagia. 10.Coagulopathy. 11.Obstructive sleep apnea. PLAN: He is going to be admitted on monitored bed. We will recheck a troponin, recheck an echocardiogram to evaluate for pericardial effusion given the above. Check a.m. cortisol level. Hold Cardura and parameters will be written for blood pressure for hydralazine and metoprolol. Follow blood pressures closely and symptoms. Pending the above, consider cardiology consult. Hold Coumadin for now with daily INR. Further orders and recommendations pending clinical course. CASTILLO/MARK RIMMA Cruz / [id number] History And Physical [address] [address] NAME: CAROLEE KESSLER : [birth year] STATUS : ADM IN [facility]#: [id number] AGE: 36 ADM/REG DATE : 01/01/17 MR#: [id number] REPORT SERV DATE: 01/01/17 DICTATED BY: DATE: REPORT STATUS : Draft TRANSCRIBED BY: MARK DATE: 01/01/17 CC: Leonardo Wilder M.D.
--- NOTE | ~2016-12-31 | DS ---
Discharge Summary [facility] [address] [facility] [place]. [address] NAME: CAROLEE KESSLER : [birth year] STATUS : DIS IN PAT#: [id number] AGE: 36 ADM/REG DATE : 01/01/17 MR#: [id number] REPORT SERV DATE: 01/16/17 DICTATED BY: EMILIE CONWAY DATE: 01/15/17 REPORT STATUS : Draft TRANSCRIBED BY: MARK DATE: 01/15/17 Data Collection from hospitalization DISCHARGE DIAGNOSES: 1. End-stage renal disease. 2. Small pericardial effusion. 3. Hypotension-resolved. 4. Noncompliance. 5. Moderate/severe pulmonary hypertension. 6. Nonobstructive coronary artery disease. 7. Hypertension. 8. Sick sinus syndrome. 9. History of pacemaker placement. 10.Hyperlipidemia. 11.Dilated cardiomyopathy. 12.Obstructive sleep apnea. CONSULTATIONS: None. PROCEDURES PERFORMED: CT scan of the abdomen and pelvis without contrast, 01/01/2017. MEDICATIONS: Zyloprim 100 mg daily; Cordarone 200 mg every morning; Halfprin 81 mg daily; Lipitor 40 mg at bedtime; Tums 1000 mg three times a day as needed; Sensipar 60 mg on Tuesdays, , and Saturdays; vitamin B12 1000 mcg daily; Cardura 2 mg daily; folic acid 1 mg daily; Neurontin 300 mg twice a day as needed; Apresoline 50 mg three times a day; Ottertail 10/325 one tablet three times a day as needed; Cortef 5 mg daily for five days as instructed; melatonin 3 mg at bedtime; Lopressor 25 mg twice a day; Nephrocaps one capsule daily; Coumadin 5 mg at bedtime; Ambien 5 mg at bedtime as needed. CONDITION AT DISCHARGE: Stable. DISPOSITION: The patient was discharged home on a renal diet with activities as instructed. He would resume outpatient hemodialysis as scheduled. HOSPITAL COURSE: This is a 36-year-old man, who has end-stage renal disease, hypertension, and glnslnko-bu-mpjmix pulmonary hypertension as well as dilated cardiomyopathy. He had been hospitalized two weeks prior to this admission after suffering a ventricular fibrillation arrest after being noncompliant with dialysis and he was found to have a potassium of 6.9. During his arrest, he did receive CPR and had to be intubated. He said that since being home, he continued to have chest discomfort. He said that he also had some difficulty swallowing as well and had only been doing liquids in minimal amount. On Wednesday prior to this admission, he went to dialysis and afterwards he felt dizzy, nauseated, and had a low blood pressure. After drinking some fluids, this improved. On the day prior to this admission, he went to dialysis and he said they did not take off that much fluid and he was well below his dry weight. However, he did develop hypotension and became nauseated, very dizzy, and had a blood pressure in the 70s that would not respond to fluids that he took n.p.o. He developed shortness of breath. EMS was called and he was brought to the emergency department here. In the emergency department, his blood pressures were in the 90s Discharge Summary [address] [place]. [address] NAME: CAROLEE KESSLER : 82 STATUS : DIS IN PAT#: [id number] AGE: 36 ADM/REG DATE : 01/01/17 MR#: [id number] REPORT SERV DATE: 01/16/17 DICTATED BY: EMILIE CONWAY DATE: 01/15/17 REPORT STATUS : Draft TRANSCRIBED BY: MARK DATE: 01/15/17 and his chest x-ray showed some pulmonary edema. It had actually improved from his last chest x-ray here. Troponin was elevated at 0.28. The patient does have chronic elevation of his troponin. He had echocardiogram in his last admission. He had trace pericardial effusion. He was admitted to the hospital at this time for further evaluation and treatment. Upon admission, a CT scan of the abdomen and pelvis showed no acute intraabdominal abnormality. He was placed in a monitored bed. Troponin would be rechecked as well as recheck of the echocardiogram to evaluate pericardial effusion. A.m. cortisol level would be checked. Cardura was going to be held. Parameters would be written for blood pressure for hydralazine and metoprolol. We would follow his blood pressure closely and his symptoms. We would hold Coumadin for now. Daily INRs would be checked. A limited echocardiogram was performed. The following day, he had no nausea, vomiting, or shortness of breath. He had no edema. Creatinine level was 7.07. Hemodialysis therapy was performed. Speech-Language Pathology performed a bedside swallow study. There were no overt signs or symptoms of aspiration. On 01/03/2017, he had no complaints. He was eating without difficulty. Cortisol level was 6.3. Creatinine level was 9.87. Orthostatic blood pressures were checked. He continued to do well. He had no new complaints. His blood pressure was stable. Discharge planning was performed. On 01/05/2017, he had no complaints. He was alert and cooperative. He had mild edema. Blood pressure was stable. Discharge instructions were given. Due to his improved and stable condition, he was discharged home with the above-stated instructions. Information collected by: Julia Henning I submit the above information as my discharge summary. TG/MODL Emilie Conway M.D. / [id number] CC: Emilie Conway M.D.
[~2016-12-31 23:20] MED LIST changes: +CORTEF5; +CORTEF5 PO; +DIALYSIS IV; +MELA3 PO; +SENSIPAR60 MG PO
[2016-12-31 23:48] LABS: BASOPHILS 0.4 %; BASOPHILS ABSOLUTE 0.03 10/3/uL (0.0-0.16); EOSINOPHILS 1.6 %; EOSINOPHILS ABSOLUTE 0.12 10/3/uL (0.0-0.53); ER CBC TAT 0 Hrs 00 Mins; HEMATOCRIT 24.2 % (40.0-51.0); HEMOGLOBIN 7.9 g/dL (13.6-17.8); IMMATURE GRANULOCYTES 0.4 %; IMMATURE GRANULOCYTES ABSOLUTE 0.03 10/3/uL (0.0-0.11); LYMPHOCYTES 12.1 %; MEAN CORPUS HGB CONC 32.6 g/dL (32.0-36.0); MEAN CORPUSCULAR HEMOGLOB 30.7 pg (26.0-34.0); MEAN CORPUSCULAR VOLUME 94.2 fL (80-100); MEAN PLATELET VOLUME 9.2 fL (9.2-13.0); MONOCYTES 7.4 %; MONOCYTES ABSOLUTE 0.55 10/3/uL (0.21-1.20); NEUTROPHILS 78.1 %; NEUTROPHILS ABSOLUTE 5.83 10/3/uL (2.02-8.40); RBC DISTRIBUTION WIDTH 15.6 % (12.0-16.0); RED CELL COUNT 2.57 10/6/uL (4.7-6.1); WHITE BLOOD CELLS 7.5 10/3/uL (4.5-10.5)
[2016-12-31 23:49] LABS: MANUAL DIFF NO %; PLATELET COUNT 142 10/3/uL (150-400)
[2016-12-31 23:59] LABS: PARTIAL THROMBO TIME 120.1 SEC (22.5-37.2)
[2017-01-01] LABS: PROTIME (NOT ORD) 45.9 SEC (12.0-14.5)
[2017-01-01 00:05] LABS: ALBUMIN 2.4 G/DL (3.5-5.0); CHLORIDE, SERUM 101 MMOL/L (96-112); GLUCOSE, SERUM 92 MG/DL (60-99); POTASSIUM, SERUM 3.7 MMOL/L (3.5-5.3); SGOT(AST) 12 U/L (5-40); SGPT(ALT) 13 U/L (5-65); SODIUM, SERUM 140 MMOL/L (135-148); TOTAL BILIRUBIN 0.5 MG/DL (0-1.2)
[2017-01-01 00:08] LABS: A/G RATIO 0.5 (0.7-1.9); ALKALINE PHOSPHATASE 487 U/L (45-117); BUN (BLOOD UREA NITROGEN) 31 MG/DL (6-23); CALCIUM, SERUM 7.4 MG/DL (8.5-10.4); CO2 (CARBON DIOXIDE) 30 MMOL/L (24-34); CREATININE 7.07 MG/DL (0.70-1.30); GFR AFRICAN AMERICAN 11 ML/MIN (>=60); GFR NON AFRICAN AMERICAN 9 ML/MIN (>=60); GLOBULIN 4.6 G/DL (2.5-4.1); TROPONIN I 0.24 NG/ML (<0.05)
[2017-01-01] MEDS ORDERED: MELA3 PO (01:52)
[2017-01-01] MEDS ORDERED: LOP25 PO (01:53)
[2017-01-01] MEDS ORDERED: C5 PO (01:53)
[2017-01-01] MEDS ORDERED: NEPHRO PO (01:53)
[2017-01-01] MEDS ORDERED: AMB5 PO (01:56)
[2017-01-01] MEDS ORDERED: CARDU2 PO (01:57)
[2017-01-01] MEDS ORDERED: FOLIC PO (01:58)
[2017-01-01] MEDS ORDERED: APRES50 PO (01:59)
[2017-01-01] MEDS ORDERED: NEUR300 PO (01:59)
[2017-01-01] MEDS ORDERED: NORCO1 TAB PO (02:01)
[2017-01-01] MEDS ORDERED: Z100 PO (02:02)
[2017-01-01] MEDS ORDERED: CORTEF5 PO (02:02)
[2017-01-01] MEDS ORDERED: CORDARONE PO (02:02)
[2017-01-01] MEDS ORDERED: HALF81 PO (02:03)
[2017-01-01] MEDS ORDERED: LIPITOR40 PO (02:03)
[2017-01-01] MEDS ORDERED: TUMSROLL PO (02:04)
[2017-01-01] MEDS ORDERED: CYANO1000T PO (02:05)
[2017-01-01] MEDS ORDERED: SENSIPAR60 MG PO (02:05)
[2017-01-02 14:00] LABS: BASOPHILS 0.3 %; BASOPHILS ABSOLUTE 0.02 10/3/uL (0.0-0.16); EOSINOPHILS 2.8 %; EOSINOPHILS ABSOLUTE 0.18 10/3/uL (0.0-0.53); HEMATOCRIT 21.9 % (40.0-51.0); HEMOGLOBIN 7.1 g/dL (13.6-17.8); IMMATURE GRANULOCYTES 0.3 %; IMMATURE GRANULOCYTES ABSOLUTE 0.02 10/3/uL (0.0-0.11); LYMPHOCYTES 14.1 %; LYMPHOCYTES ABSOLUTE 0.92 10/3/uL (0.67-4.30); MANUAL DIFF NO %; MEAN CORPUS HGB CONC 32.4 g/dL (32.0-36.0); MEAN CORPUSCULAR HEMOGLOB 30.5 pg (26.0-34.0); MEAN PLATELET VOLUME 9.6 fL (9.2-13.0); MONOCYTES 7.8 %; MONOCYTES ABSOLUTE 0.51 10/3/uL (0.21-1.20); NEUTROPHILS 74.7 %; NEUTROPHILS ABSOLUTE 4.88 10/3/uL (2.02-8.40); PLATELET COUNT 140 10/3/uL (150-400); RBC DISTRIBUTION WIDTH 15.9 % (12.0-16.0); RED CELL COUNT 2.33 10/6/uL (4.7-6.1); WHITE BLOOD CELLS 6.5 10/3/uL (4.5-10.5)
[2017-01-02 14:16] LABS: ALBUMIN 2.3 G/DL (3.5-5.0); CALCIUM, SERUM 7.6 MG/DL (8.5-10.4); CHLORIDE, SERUM 102 MMOL/L (96-112); CO2 (CARBON DIOXIDE) 27 MMOL/L (24-34); FERRITIN 894 NG/ML (26-388); GLUCOSE, SERUM 92 MG/DL (60-99); IRON BINDING CAPACITY 124 MCG/DL (250-450); IRON, SERUM 48 MCG/DL (35-150); POTASSIUM, SERUM 4.2 MMOL/L (3.5-5.3); SODIUM, SERUM 140 MMOL/L (135-148)
[2017-01-02 14:17] LABS: BUN (BLOOD UREA NITROGEN) 44 MG/DL (6-23); CREATININE 9.87 MG/DL (0.70-1.30); GFR AFRICAN AMERICAN 7 ML/MIN (>=60); GFR NON AFRICAN AMERICAN 6 ML/MIN (>=60); PHOSPHORUS, SERUM 6.6 MG/DL (2.5-4.5)
[2017-01-02 14:25] LABS: INTERNATIONAL NORMAL RATI 2.6 UNITS (-)
[2017-01-02 14:27] LABS: PROTIME (NOT ORD) 27.8 SEC (12.0-14.5)
[2017-01-03 05:56] LABS: BASOPHILS 0.6 %; BASOPHILS ABSOLUTE 0.04 10/3/uL (0.0-0.16); EOSINOPHILS 2.3 %; EOSINOPHILS ABSOLUTE 0.16 10/3/uL (0.0-0.53); HEMOGLOBIN 7.6 g/dL (13.6-17.8); IMMATURE GRANULOCYTES 1.2 %; IMMATURE GRANULOCYTES ABSOLUTE 0.08 10/3/uL (0.0-0.11); LYMPHOCYTES ABSOLUTE 1.04 10/3/uL (0.67-4.30); MEAN CORPUS HGB CONC 31.5 g/dL (32.0-36.0); MEAN CORPUSCULAR VOLUME 95.3 fL (80-100); MEAN PLATELET VOLUME 9.8 fL (9.2-13.0); MONOCYTES 8.1 %; MONOCYTES ABSOLUTE 0.56 10/3/uL (0.21-1.20); NEUTROPHILS 72.8 %; NEUTROPHILS ABSOLUTE 5.04 10/3/uL (2.02-8.40); PLATELET COUNT 140 10/3/uL (150-400); RBC DISTRIBUTION WIDTH 15.6 % (12.0-16.0); RED CELL COUNT 2.53 10/6/uL (4.7-6.1); WHITE BLOOD CELLS 6.9 10/3/uL (4.5-10.5)
[2017-01-03 06:16] LABS: HEMATOCRIT 24.1 % (40.0-51.0); MANUAL DIFF NO %
[2017-01-03 06:17] LABS: PLATELET ESTIMATE SLT DEC (ADEQUATE); POLYCHROMASIA 1+ (2-5/OIF) (0-1/OIF)
[2017-01-03 06:27] LABS: INTERNATIONAL NORMAL RATI 2.1 UNITS (-)
[2017-01-03 06:28] LABS: PROTIME (NOT ORD) 23.6 SEC (12.0-14.5)
[2017-01-04 06:34] LABS: INTERNATIONAL NORMAL RATI 1.9 UNITS (-)
[2017-01-05 05:29] LABS: INTERNATIONAL NORMAL RATI 2.2 UNITS (-); PROTIME (NOT ORD) 24.2 SEC (12.0-14.5)
[2017-01-05 09:14] LABS: ALBUMIN 2.2 G/DL (3.5-5.0); BUN (BLOOD UREA NITROGEN) 42 MG/DL (6-23); CHLORIDE, SERUM 102 MMOL/L (96-112); CO2 (CARBON DIOXIDE) 27 MMOL/L (24-34); GFR AFRICAN AMERICAN 6 ML/MIN (>=60); GFR NON AFRICAN AMERICAN 6 ML/MIN (>=60); GLUCOSE, SERUM 80 MG/DL (60-99); PHOSPHORUS, SERUM 6.7 MG/DL (2.5-4.5); POTASSIUM, SERUM 4.6 MMOL/L (3.5-5.3); SODIUM, SERUM 138 MMOL/L (135-148)
== END 2017-01-05 15:31 | disposition home or self-care (01) | DRG 682 ==
LOC: ER 23:20 → 1SO 01-01 02:00
PROVIDERS: Internal Medicine Nephrology; Nurse Practitioner; Specialist
PROC: 5A1D60Z (ICD-10-PCS; principal; 2017-01-02)
DX: I12.0 Hypertensive chronic kidney disease with stage 5 chronic kidney disease or end stage renal disease (principal); N18.6 End stage renal disease; I42.8 Other cardiomyopathies; D68.9 Coagulation defect, unspecified; I31.3 Pericardial effusion (noninflammatory); E27.40 Unspecified adrenocortical insufficiency; E11.22 Type 2 diabetes mellitus with diabetic chronic kidney disease; I27.2 Other secondary pulmonary hypertension; I95.9 Hypotension, unspecified; G47.33 Obstructive sleep apnea (adult) (pediatric); D63.1 Anemia in chronic kidney disease; E78.5 Hyperlipidemia, unspecified; I48.91 Unspecified atrial fibrillation; E87.70 Fluid overload, unspecified; T45.515A Adverse effect of anticoagulants, initial encounter; I25.10 Atherosclerotic heart disease of native coronary artery without angina pectoris; I49.5 Sick sinus syndrome; J44.9 Chronic obstructive pulmonary disease, unspecified; Z99.2 Dependence on renal dialysis; R13.10 Dysphagia, unspecified; F17.290 Nicotine dependence, other tobacco product, uncomplicated; Z79.82 Long term (current) use of aspirin; Z79.01 Long term (current) use of anticoagulants; Z79.891 Long term (current) use of opiate analgesic; Z79.899 Other long term (current) drug therapy; Z91.15 Patient's noncompliance with renal dialysis; Z95.0 Presence of cardiac pacemaker
CPT/HCPCS: 71010; 74176; 80053; 80069; 81001; 82272; 82533; 82728; 82962; 83540; 83550; 83605; 83690; 83735; 84484; 85025; 85610; 85730; 87040; 92610-GN; 93005; 93308; 99285; A9270-GY; G0257; G8996-CI-GN; G8997-CI-GN; G8998-CI-GN; J0834; J0885